=== PATIENT | female | born 1970 | race Caucasian/White ===

== ENCOUNTER 2017-11-21 13:02 | Emergency (ER) | payer OTHER ==
[~2017-11-21] VITALS: Ht 160 cm; Wt 90.7 kg
[~2017-11-21 13:02] MED LIST: Bactrim Ds Tab1 EACH PO; CIPR500 PO; HYDACE5 PO; Lasix20 MG PO; OXYACE5T PO; POTCHL20ER PO; PROM25 PO
[2017-11-21] MEDS ORDERED: ALBU90OI INH (14:40)
[2017-11-21] MEDS ORDERED: Zithromax250 MG PO (14:40)
[2017-11-21] MEDS ORDERED: Prednisone20 MG PO (14:40)
== END 2017-11-21 14:45 | disposition home or self-care (01) ==
LOC: ER 13:02
DX: J18.9 Pneumonia, unspecified organism (principal); F17.210 Nicotine dependence, cigarettes, uncomplicated
CPT/HCPCS: 71046; 94640; 99284

== ENCOUNTER → 2019-01-11 | Outpatient (CLI) | payer SELFPAY ==
[~2019-01-11] MED LIST changes: +ALBU90OI INH; +Prednisone20 MG PO; +Zithromax250 MG PO
== END | disposition home or self-care (01) ==
LOC: LAB SRC 09:19 → LAB SHORT 09:19
DX: R30.0 Dysuria (principal); R35.0 Frequency of micturition
CPT/HCPCS: 87077; 87086; 87186

== ENCOUNTER 2019-08-21 14:51 | Inpatient (IN) | payer OTHER ==
[~2019-08-21] VITALS: Ht 160 cm; Wt 113.1 kg
[2019-08-21 15:48] LABS: Hemoglobin 13.5 g/dL (11.5-16.0); Mean Corpuscular HGB 30.4 pg (26.0-34.0); Mean Corpuscular HGB Conc 31.4 g/dL (31.5-36.5); Mean Corpuscular Volume 97 fL (80-100); Mean Platelet Volume 10.1 fL (9.1-12.4); Platelet Count 234 K/mm3 (150-400); RDW Coefficient Variation 13.6 % (11.7-14.2); RDW Standard Deviation 48.5 fL (35.1-46.3); Red Blood Cell Count 4.44 M/mm3 (3.80-5.20); White Blood Cell Count 9.76 K/mm3 (4.00-11.30)
[2019-08-21 16:04] LABS: International Normalized Ratio 1.16; Prothrombin Time Results 12.1 Sec (9.7-11.5)
[2019-08-21 16:10] LABS: Alanine Aminotransfer (ALT/SGP 44 U/L (12-78); Albumin, Blood 3.3 g/dL (3.4-5.0); Albumin/Globulin Ratio 0.6 (0.8-1.8); Alk Phos 117 U/L (50-136); Anion Gap 8 mmol/L (6-16); Aspartate Aminotrans (AST/SGOT 39 U/L (12-37); Bilirubin, Total 0.8 mg/dL (0.1-1.0); Blood Urea Nitrogen 21 mg/dL (8-24); Bun/Creatinine Ratio 17.9 (12.0-20.0); CO2, Blood 26 mmol/L (21-32); Chloride, Blood 103 mmol/L (98-108); Creatinine, Blood 1.17 mg/dL (0.40-1.00); Globulin, Blood 5.1 g/dL (2.2-4.0); Glomerular Filtration Rate 52 (60-); Glucose, Blood 128 mg/dL (70-99); Sodium, Blood 137 mmol/L (136-145); Total Protein, Blood 8.4 g/dL (6.4-8.2); Troponin I <0.015 ng/mL (0.000-0.040)
[2019-08-21 16:20] LABS: Influenza A Negative (NEGATIVE); Influenza B Negative (NEGATIVE)
[2019-08-21 16:42] LABS: BAND PERCENT MAN 21 % (0-8); BASOPHILS PERCENT MAN 0 % (0-2); EOSINOPHILS PERCENT MAN 0 % (0-6); LYMPHOCYTES ABSOLUTE MAN 0.97 K/mm3 (0.84-5.20); LYMPHOCYTES PERCENT MAN 10 % (21-46); METAMYELOCYTE ABSOLUTE MAN 0.19 K/mm3 (0.00-0.00); METAMYELOCYTE PERCENT MAN 2 % (0-0); MONOCYTES ABSOLUTE MAN 0.19 K/mm3 (0.16-1.47); MONOCYTES PERCENT MAN 2 % (4-13); NEUTROPHILS ABSOLUTE MAN 8.39 K/mm3 (1.96-9.15); SEG NEUTROPHILS PERCENT MAN 65 % (41-73); TOTAL CELLS COUNTED 100
[2019-08-21 17:36] LABS: Source, Urine Catheter
[2019-08-21 17:39] LABS: Blood, Urine 1+ (Neg); Glucose Qualitative, Urine Neg (Neg); Ketones, Urine 1+ (Neg); Leukocyte Esterase, Urine 1+ (Neg); Nitrite, Urine Neg (Neg); Protein, Urine 2+ (Neg); Urobilinogen, Urine 1+ (Normal)
[2019-08-21 17:59] LABS: Appearance, Urine Hazy (Clear); Bilirubin, Urine 1+ (Neg); Color, Urine Amber (P-Yellow)
[2019-08-21 18:01] LABS: Red Blood Cells, Urine 0-2 /hpf (0-2); Squamous Epithelial Cells Many /hpf (Few)
[2019-08-21 18:02] LABS: Bacteria Many /hpf
--- NOTE | 2019-08-21 20:05 | NUR ---
PT ARRIVES TO ICU 6 VIA GURNEY FROM ER, ALERT AND ORIENTED X 3, SPEAKING IN 1-2 WORD SENTENCES, PT STATES THAT BREATHING FEELS A LITTLE IMPROVED FROM ARRIVAL IN ER. SHE DENIES N/V, STATES THAT SHE HAS 7/10 SHARP PAIN TO HER CHEST EXACERBATED BY COUGH. SHE IS NOTED RESTLESS IN BED WITH MARKED INCREASED WORK OF BREATHING, RT CONTACTED FOR UDN, OXYGEN VIA NASAL CANNULA IN PLACE FROM ER, PT STATES THAT SHE CAN'T BREATH THROUGH HER NOSE, NASAL CANNULA PLACED IN PT'S MOUTH, PT ASSISTED TO POSITION OF COMFORT, LUNGS ARE NOTED COARSE THROUGHOUT WITH DIM BASES BILAT, SATS ARE MID 90S, RESP RATE 30-MID 40S AT THIS TIME. HRR, SINUS TACH NOTED ON MONITOR, RATE 130S, SBP 90S HOWEVER MAP IS MAINTAINING NEAR 70, PULSES ARE FULL X 4 EXTREMITIES, SKIN IS PINK AND WARM, SOME DIAPHORESIS NOTED, NO EDEMA NOTED AT THIS TIME, CAP REFILL IS BRISK. ABD DISTENDED, ACTIVE BOWEL TONES X 4, NONTENDER TO PALP. GARCIA CATH IN PLACE DRAINING CLEAR, DARK DEVI URINE TO GRAVITY, WILL MONITOR. RT RECOMMENDATION FOR AIRVO NOTED AND CALL PLACED TO DR SPENCER, ORDERS OBTAINED AND RT NOTIFIED.
--- NOTE | 2019-08-21 22:35 | NUR ---
PT C/O FEELING OF SHORTNESS OF BREATH IS INCREASING, SHE IS NOTED RESTLESS IN BED, RESP RATE IS NEAR 30 WHEN AT REST WITH IMPROVEMENT TO WORK OF BREATHING HOWEVER WITH ACTIVITY, RATE INCREASES TO MID 40S. CALL PLACED TO DR SPENCER AND ORDERS OBTAINED.
[2019-08-21 22:49] LABS: PCO2 Arterial 35.6 mmHg (35-45); PO2 Arterial 67.8 mmHg (80-100); pH Blood Arterial 7.38 (7.35-7.45)
--- NOTE | 2019-08-21 23:00 | NUR ---
PT APPEARS TO BE RESTING QUIETLY RESPIRATIONS EVEN AND REGULAR RATE MID 20S, SATS MAINTAINING MID 90S. LUNG SOUNDS CONTINUE COARSE THROUGHOUT, IMPROVED AIR MOVEMENT IS NOTED BILATERAL BASES.
--- NOTE | 2019-08-21 23:39 | NUR ---
PT AWAKE C/O FEELING SCARED, RESP RATE NOTED 40S, SATS CONTINUE TO MAINTAIN, LUNGS CONTINUE COARSE THROUGHOUT, RT CONTACTED AND AT BEDSIDE FOR AIRVO ADJUSTMENT. WILL MONITOR AND NOTIFY MD IF NO IMPROVEMENT IS NOTED.
--- NOTE | 2019-08-22 | NUR ---
PT CONTINUES WITH INCREASED WORK OF BREATHING AND RATE MID 40S, CALL PLACED TO DR DIETZ AND ORDERS RECEIVED FOR BIPAP, RT AT BEDSIDE AND INITIATING AT THIS TIME. WILL MONITOR.
--- NOTE | 2019-08-22 01:00 | NUR ---
PT TOLERATING BIPAP WELL SINCE INITIATION, SATS MID TO UPPER 90S, RESP RATE DECREASED TO MID 20S TO 30 AND PT APPEARS TO BE SLEEPING.
--- NOTE | 2019-08-22 02:50 | NUR ---
PT LUNGS CONT COARSE THROUGHOUT, INCREASED RESP RATE AND EFFORT CONTINUE ON BIPAP, IVF TO TKO AND CALL PLACED TO DR DIETZ, DISCUSSED CONCERNS RELATED POSS FLUID OVERLOAD, ORDERS RECEIVED FOR BNP WITH AM LABS AND DC NS AT 200 ML/HR.
[2019-08-22 03:15] LABS: Hematocrit 35.4 % (33.0-51.0); Mean Corpuscular HGB 29.9 pg (26.0-34.0); Mean Corpuscular HGB Conc 31.1 g/dL (31.5-36.5); Mean Corpuscular Volume 96 fL (80-100); Mean Platelet Volume 10.1 fL (9.1-12.4); Platelet Count 179 K/mm3 (150-400); RDW Coefficient Variation 13.9 % (11.7-14.2); RDW Standard Deviation 49.1 fL (35.1-46.3); Red Blood Cell Count 3.68 M/mm3 (3.80-5.20); White Blood Cell Count 13.28 K/mm3 (4.00-11.30)
[2019-08-22 03:31] LABS: Alanine Aminotransfer (ALT/SGP 35 U/L (12-78); Albumin, Blood 2.5 g/dL (3.4-5.0); Albumin/Globulin Ratio 0.6 (0.8-1.8); Alk Phos 79 U/L (50-136); Anion Gap 7 mmol/L (6-16); Aspartate Aminotrans (AST/SGOT 36 U/L (12-37); Bilirubin, Total 0.4 mg/dL (0.1-1.0); Blood Urea Nitrogen 22 mg/dL (8-24); Bun/Creatinine Ratio 23.3 (12.0-20.0); CO2, Blood 22 mmol/L (21-32); Calcium, Blood 7.4 mg/dL (8.5-10.1); Chloride, Blood 111 mmol/L (98-108); Creatinine, Blood 0.95 mg/dL (0.40-1.00); Globulin, Blood 4.1 g/dL (2.2-4.0); Glomerular Filtration Rate >60 (60-); Glucose, Blood 83 mg/dL (70-99); Potassium, Blood 4.1 mmol/L (3.5-5.5); Sodium, Blood 140 mmol/L (136-145); Total Protein, Blood 6.6 g/dL (6.4-8.2)
[2019-08-22 04:31] LABS: BAND PERCENT MAN 30 % (0-8); BASOPHILS PERCENT MAN 0 % (0-2); EOSINOPHILS PERCENT MAN 0 % (0-6); LYMPHOCYTES ABSOLUTE MAN 1.72 K/mm3 (0.84-5.20); LYMPHOCYTES PERCENT MAN 13 % (21-46); METAMYELOCYTE ABSOLUTE MAN 0.39 K/mm3 (0.00-0.00); METAMYELOCYTE PERCENT MAN 3 % (0-0); MONOCYTES ABSOLUTE MAN 0.13 K/mm3 (0.16-1.47); MONOCYTES PERCENT MAN 1 % (4-13); MYELOCYTE ABSOLUTE MAN 0.13 K/mm3 (0.00-0.00); MYELOCYTE PERCENT MAN 1 % (0-0); NEUTROPHILS ABSOLUTE MAN 10.88 K/mm3 (1.96-9.15); SEG NEUTROPHILS PERCENT MAN 52 % (41-73); TOTAL CELLS COUNTED 100
--- NOTE | 2019-08-22 06:36 | NUR ---
PT FREQUENTLY AWAKE AND RESTLESS THIS SHIFT RELATED TO DYSPNEA. ARRIVED FROM ER WITH OXYGEN VIA NASAL CANNULA AND RESP RATES 30-40S, LUNGS COARSE THROUGHOUT, OXYGEN WAS INCREASED TO AIRVO AND PT CONTINUED IN WITH INCREASED WORK OF BREATHING, BIPAP WAS STARTED AT MIDNOC ASSESSMENT FOR PT CONTINUED DYSPNEA AND RESP RATES 30-40S WITH ACTIVITY AND INCREASED RESTLESSNESS, PT WAS ABLE TO RELAX AND APPEARED TO SLEEP FOR BRIEF DURATIONS, RATES IMPROVED INITIALLY TO MID 20S AND SATS TO HIGH 90S, COARSE LUNG SOUNDS CONTINUED THROUGHOUT OF 244 THIS AM AND FLUIDS WERE DC'D, BNP ASSESSED AND PT WAS MADE NPO. LUNG SOUNDS HAVE IMPROVED THIS AM, THEY REMAIN COARSE THROUGHOUT HOWEVER IMPROVED AIR MOVEMENT IS NOTED, BIPAP SETTINGS ARE 14/7, FIO2 30% PT'S SATS CONTINUE TO MAINTAIN. PT WAS MADE ICU STATUS IN ER FOR CONCERN OF HYPOTENSION WITH DIAGNOSIS OF SEPSIS, PRESSURE HAS MAINTAINED THROUGHOUT SHIFT, PULSES REMAIN FULL X 4 EXTREMITIES, SKIN REMAINS PWD WITH BRISK CAP REFILL, TRACE NON-PITTING EDEMA IS NOTED TO EXTREMITIES.
--- NOTE | 2019-08-22 09:46 | NUR ---
CARE ASSUMED ASSESSMENT COMPLETED, PT RESTING IN BED WITH EYES CLOSED, ORIENTED X4, ANXIOUS AT TIMES. HR 120'S SIT, LS RHONCHI T/O, BIPAP 14/7, 30% FIO2, SPO2 >90%, RR 30'S. ORAL CARE COMPLETED, PT SOB AT REST, CAN ONLY TOLERATE BIPAP MASK TO BE OFF FOR BRIEF MOMENTS TO PROVIDE CARES, SPEAKS 3-4 WORDS AT A TIME. ABX ADMINISTERED PER ORDERS. DR. MOURA AT BEDSIDE, NEW ORDERS, LASIX ADMINISTERED, WILL MONITOR BP'S CLOSELY.
--- NOTE | 2019-08-22 12:55 | NUR ---
PT RESTING IN BED, REMAINS MILDLY ANXIOUS. LS IMPROVING, CLEAR ON LEFT, COARSE IN RIGHT UPPER AND MID LOBES WITH A FINE EXPIRATORY WHEEZE IN THE RIGHT LOWER LOBE. LOOSE COUGH PRESENT. BIPAP 14/7 25% FIO2, SPO2 95%, RR 28-30. BP STABLE, GOOD URINE OUTPUT. PT RESTING WITH EYES CLOSED, INTERMITTENTLY SWABBING MOUTH WITH WATER.
--- NOTE | 2019-08-22 16:37 | NUR ---
patient gave me permission to help with her care.
--- NOTE | 2019-08-22 19:14 | NUR ---
PT HAD GOOD URINE OUTPUT TODAY AFTER LASIX, LS CLEARED ON LEFT SIDE, REMAIN COARSE ON RIGHT, NO CRACKLES OR WHEEZES NOTED. PT COUGHING, FAYE SPUTUM PRODUCTION REMAINS. BIPAP 14/7, FIO2 25%, RR 28, PT TOLERATING BIPAP WELL. DR. GARRIDO IN THIS EVENING TO REASSESS, SECOND DOSE OF LASIX ADMINISTERED. HR 100-120 SIT, BP STABLE AT THIS TIME. BEDBATH GIVEN, PT TOLERATED WELL, PT MORE ALERT AND TALKATIVE THIS EVENING, WORK OF BREATHING DECREASED FROM THIS MORNINGS ASSESSMENT. NO PERIPHERAL EDEMA NOTED. 1600 REASSESSMENT COMPLETED BY THIS RN WELL STUDENT, THIS RN AGREES WITH STUDENT'S CHARTED ASSESSENTS. REPORT TO ONCOMING SHIFT.
--- NOTE | 2019-08-22 19:15 | NUR ---
ASSUMED CARE OF PT, REPORT RECEIVED. PT APPEARS TO BE SLEEPING AT THIS TIME, BIPAP IN PLACE 08/05, FIO2 25%, SATS MID 90S, RATE 22-25 AT THIS TIME, TIDAL VOLUMES NEAR 600. HRR, SINUS TACH ON MONITOR, RATE BETWEEN 100 AND 110, PRESSURE MAINTAINING. SIG OTHER AT BEDSIDE, WILL CALL WHEN PT AWAKENS OTHERWISE PLAN TO ATTEMPT NASAL CANNULA AFTER 1999 AND ALLOW PT TO HAVE PO INTAKE IF NO MARKED INCREASED WORK OF BREATHING OFF BIPAP.
--- NOTE | 2019-08-22 21:15 | NUR ---
PT FROM BIPAP TO NASAL CANNULA AT 4L/MIN SATS 100% AND MAINTAINING, DECREASED TO 2 L/MIN, SATS MID 90S, RESP RATE LOW 20S AT THIS TIME, WILL MONITOR X 30 MINUTES. PT DENIES PAIN, STATES THAT HER BREATHING IS FEELING BETTER, SPEAKING IN FULL SENTENCES AT THIS TIME, WILL MONITOR.
--- NOTE | 2019-08-22 22:00 | NUR ---
PT TOLERATING NASAL CANNULA WELL WITHOUT INCREASED WORK OF BREATHING AND SATS ARE MAINTAINING, RESP RATE CONTINUES LOW 20S. PROVIDED WITH JELLO, PUDDING, AND ICEWATER AT THIS TIME. WILL MONITOR.
--- NOTE | 2019-08-22 22:30 | NUR ---
PT TOLERATING PO INTAKE WELL. WILL CONT TO MONITOR.
[2019-08-23 03:14] LABS: BASOPHILS ABSOLUTE AUTO 0.05 K/mm3 (0.00-0.23); BASOPHILS PERCENT AUTO 0 % (0-2); EOSINOPHILS ABSOLUTE AUTO 0.03 K/mm3 (0.00-0.68); EOSINOPHILS PERCENT AUTO 0 % (0-6); Hemoglobin 10.7 g/dL (11.5-16.0); IMMATURE GRAN ABSOLUTE AUTO 0.05 K/mm3 (0.00-0.10); IMMATURE GRAN PERCENT AUTO 0 % (0-1); LYMPHOCYTES ABSOLUTE AUTO 1.52 K/mm3 (0.84-5.20); LYMPHOCYTES PERCENT AUTO 10 % (21-46); MONOCYTES ABSOLUTE AUTO 0.49 K/mm3 (0.16-1.47); MONOCYTES PERCENT AUTO 3 % (4-13); Mean Corpuscular HGB 30.4 pg (26.0-34.0); Mean Corpuscular HGB Conc 30.6 g/dL (31.5-36.5); Mean Corpuscular Volume 99 fL (80-100); Mean Platelet Volume 10.1 fL (9.1-12.4); NEUTROPHILS ABSOLUTE AUTO 13.06 K/mm3 (1.96-9.15); NEUTROPHILS PERCENT AUTO 86 % (41-73); Platelet Count 183 K/mm3 (150-400); RDW Coefficient Variation 14.3 % (11.7-14.2); RDW Standard Deviation 52.2 fL (35.1-46.3); Red Blood Cell Count 3.52 M/mm3 (3.80-5.20)
[2019-08-23 03:25] LABS: Base Excess Venous 0.4 mmol/L; Bicarbonate Venous 24.2 mmol/L (24.0-30.0); PCO2 Venous 43.7 mmHg (38-42); PO2 Venous 43.4 mmHg (38-42); pH Blood Venous 7.38 (7.34-7.37)
[2019-08-23 03:28] LABS: Anion Gap 4 mmol/L (6-16); Blood Urea Nitrogen 20 mg/dL (8-24); Bun/Creatinine Ratio 28.7 (12.0-20.0); CO2, Blood 26 mmol/L (21-32); Calcium, Blood 7.9 mg/dL (8.5-10.1); Chloride, Blood 110 mmol/L (98-108); Glomerular Filtration Rate >60 (60-); Glucose, Blood 89 mg/dL (70-99); Potassium, Blood 3.8 mmol/L (3.5-5.5); Sodium, Blood 140 mmol/L (136-145)
[2019-08-23 03:31] LABS: BAND PERCENT MAN 13 % (0-8); BASOPHILS PERCENT MAN 0 % (0-2); EOSINOPHILS PERCENT MAN 0 % (0-6); LYMPHOCYTES ABSOLUTE MAN 1.52 K/mm3 (0.84-5.20); LYMPHOCYTES PERCENT MAN 10 % (21-46); MONOCYTES ABSOLUTE MAN 0.76 K/mm3 (0.16-1.47); MONOCYTES PERCENT MAN 5 % (4-13); NEUTROPHILS ABSOLUTE MAN 12.92 K/mm3 (1.96-9.15); SEG NEUTROPHILS PERCENT MAN 72 % (41-73); TOTAL CELLS COUNTED 100
--- NOTE | 2019-08-23 04:36 | NUR ---
PT REQUESTS BIPAP SECONDARY TO INCREASED WORK OF BREATHING, BIPAP RESUMED, 08/05, FIO2 30% WILL MONITOR.
--- NOTE | 2019-08-23 06:32 | NUR ---
PT OFF BIPAP FROM 2114 UNTIL 435 THIS AM AND TOLERATED WELL. TOLERATED PO INTAKE WELL. SATS ARE MAINTAINED WITH OXYGEN VIA NASAL CANNULA AT 2 L/MIN THROUGHOUT NOC, PT REQUESTED TO BE PLACED BACK ON BIPAP TX FOR FEELING OF INCREASED WORK OF BREATHING THIS AM. LUNG SOUNDS REMAIN COARSE TO RIGHT UPPER LOBE, DIMIN ON LEFT. SHE IS NOTED TO HAVE INCREASED ACTIVITY TOLERANCE. IMPROVED URINE OUTPUT IS NOTED. PRESSURE HAS MAINTAINED WITHOUT USE OF LEVOPHED.
--- NOTE | 2019-08-23 07:55 | NUR ---
ASSUMED CARE / DR GUTIERREZ: REPORT RECEIVED FROM LEILA Post RN. ASSUMED CARE OF THIS PT AT APPROX 0700. ON ASSESSMENT, THE PT IS REQUESTING TO HAVE BIPAP REMOVED & STS SHE IS GETTING A HOGUE FROM THE MASK. BIPAP 14/7 & 25%, BACK-UP RATE 14. PT PLACED ON 2L NC W/ O2 SATS > 92%. LS ARE COARSE T/O, PT COUGHING/ EXPECTORATING WELL. MONITOR SHOWS SR W/ HR 80-90s. BP STABLE. GARCIA PATENT/ DRAINING, PT HAS NO GI COMPLAINTS. PROVIDER AT BEDSIDE TO SEE PT. TRANSFER DISCUSSED, PT OKAY TO BE PCU STATUS NOW. DR GUTIERREZ WOULD LIKE THE PT TO BE MOBILIZED TODAY & GET OOB IF POSSIBLE, THE PT IS AGREEABLE TO THIS. WILL CONTINUE TO MONITOR & UPDATE NEEDED.
--- NOTE | 2019-08-23 18:15 | NUR ---
SHIFT SUMMARY: NO ACUTE CHANGES SINCE INITIAL ASSESSMENT. PT A&O, PLEASANT & COOPERATIVE. SHE HAS BEEN VERY MOBILE THIS AFTERNOON, REQUIRING ONLY SBA FOR CORD/LINE CONTROL DURING TX OOB. LS REMAIN COARSE, PT GRACE 2L NC W/ O2 SATS > 92%. MONITOR SHOWS SR W/ HR 80s, BP STABLE. PT HAS GOOD APPETITE & NO C/O NAUSEA. HAVING LIQUID BROWN STLS, SPECIMEN SENT TO LAB IS NEG FOR C-DIFF. GARCIA PATENT/ DRAINING CLOUDY YELLOW URINE. SKIN OVERALL CDI. TRANSFER BED ASSIGNED IS PCU-14, AWAITING CALLBACK FROM RN TO ASSUME CARE FOR REPORT ON THIS PT. WILL CONTINUE TO MONITOR & REPORT OFF TO RN TO ASSUME CARE IN PCU.
--- NOTE | 2019-08-23 19:41 | NUR ---
CARE ASSUMPTION PT A&O X4. VSS. MONITOR SHOWS NSR, HR 90'S. LUNG SOUNDS COARSE. SPO2 98% W/ 2L NC UPON RETURN TO BED POST AMBULATION TO BATHROOM. PT REPORTS RA @ BASELINE. O2 TITRATED TO 1L NC W/ PT REPORT OF LIKELY NEEDING O2 DURING NIGHT WHILE SLEEPING. PT'S BOYFRIEND AT PT'S BEDSIDE W/ PLANS TO STAY W/ PT OVERNIGHT. WILL CONTINUE TO MONITOR AND PROVIDE CARE.
[2019-08-23 21:39] LABS: Vancomycin, Trough 9.1 ug/mL (5.0-10.0)
[2019-08-24 04:30] LABS: BASOPHILS ABSOLUTE AUTO 0.04 K/mm3 (0.00-0.23); BASOPHILS PERCENT AUTO 0 % (0-2); Hematocrit 31.7 % (33.0-51.0); Hemoglobin 9.9 g/dL (11.5-16.0); LYMPHOCYTES ABSOLUTE AUTO 1.84 K/mm3 (0.84-5.20); LYMPHOCYTES PERCENT AUTO 16 % (21-46); MONOCYTES ABSOLUTE AUTO 0.46 K/mm3 (0.16-1.47); MONOCYTES PERCENT AUTO 4 % (4-13); Mean Corpuscular HGB 30.3 pg (26.0-34.0); Mean Corpuscular HGB Conc 31.2 g/dL (31.5-36.5); Mean Corpuscular Volume 97 fL (80-100); Mean Platelet Volume 10.6 fL (9.1-12.4); Platelet Count 203 K/mm3 (150-400); RDW Coefficient Variation 13.8 % (11.7-14.2); RDW Standard Deviation 49.3 fL (35.1-46.3); Red Blood Cell Count 3.27 M/mm3 (3.80-5.20); White Blood Cell Count 11.27 K/mm3 (4.00-11.30)
[2019-08-24 04:31] LABS: EOSINOPHILS ABSOLUTE AUTO 0.06 K/mm3 (0.00-0.68); EOSINOPHILS PERCENT AUTO 1 % (0-6); IMMATURE GRAN ABSOLUTE AUTO 0.07 K/mm3 (0.00-0.10); IMMATURE GRAN PERCENT AUTO 1 % (0-1); NEUTROPHILS PERCENT AUTO 78 % (41-73)
[2019-08-24 04:50] LABS: Albumin, Blood 2.2 g/dL (3.4-5.0); Anion Gap 6 mmol/L (6-16); Blood Urea Nitrogen 11 mg/dL (8-24); Bun/Creatinine Ratio 19.9 (12.0-20.0); CO2, Blood 27 mmol/L (21-32); Calcium, Blood 8.1 mg/dL (8.5-10.1); Chloride, Blood 108 mmol/L (98-108); Creatinine, Blood 0.55 mg/dL (0.40-1.00); Glomerular Filtration Rate >60 (60-); Glucose, Blood 111 mg/dL (70-99); Magnesium, Blood 1.5 mg/dL (1.6-2.4); Phosphorus, Blood 2.2 mg/dL (2.5-4.9); Potassium, Blood 3.8 mmol/L (3.5-5.5); Sodium, Blood 141 mmol/L (136-145)
--- NOTE | 2019-08-24 05:45 | NUR ---
SHIFT SUMMARY PT CONTINUES TO BE A&O X4, VSS. SPO2 > 92% ON RA W/ PT REQUEST FOR O2 WHILE SLEEPING, WEARING 1-2L NC. PT AMBULATING TO BATHROOM ACCOMPANIED BY PT'S BOYFRIEND ASSISTING W/ IV LINE MANAGEMENT. PT TOLERATING AMBULATING WELL. MONITOR SHOWS NSR, HR 80-100. PT REPORTS 1 LOOSE BROWN BM THIS SHIFT. PT BEGAN PROBIOTIC THIS SHIFT PER EMAR. WILL CONTINUE TO MONITOR AND PROVIDE CARE UNTIL REPORT OFF TO DAY SHIFT RN.
--- NOTE | 2019-08-24 09:06 | NUR ---
NURSING PCU DAYSHIFT: Assumed care of pt at approx 0700. A/O, mildly anxious, cooperative w/care. C/O 4/10 neck/shoulder/back pain r/t positioning, treating w/cool cloths per pt request. Skin is intact w/no breakdown noted. Ambulates w/assist required only for line management, mild general weakness noted. Tele in place, NSR, no c/o CP/pressure, SBP 140's, trace BLE edema. L/S w/crackles in R mid/upper lobes, scattered exp wheezes, dyspnea w/exertion, O2 sat low 90's on RA, periods of apnea while sleeping, RN VASCULAR cough. Abd SNT, BT+, FC present upon initial assessment, clear/yellow urine. PIV x1, NS TKO w/abx as scheduled. No s/s of acute distress at this time. FC dc'd by PCT, pt voiding w/o difficulty, urine specimen sent as per d/o. Abx infusing as scheduled, mag rider administered as ordered. Pt and s/o deny any current needs or questions regarding plan of care. Call light in reach and pt is able to use w/o difficulty. Awaiting rounding from PMD and interventional radiologist. Cont to monitor for any changes.
[2019-08-24 14:21] LABS: Vancomycin, Trough 15.4 ug/mL (5.0-10.0)
--- NOTE | 2019-08-24 15:39 | NUR ---
NURSING PCU DAYSHIFT TRANSFER: Seen by PMD and annealing torch operator, new d/o received. Pt changed to medical status w/o tele. Bed assignment received, awaiting report to accepting RN. Worked w/therapy, tolerated well. Pt denies any current needs, cont to monitor until xfer is completed.
--- NOTE | 2019-08-24 17:08 | NUR ---
PT TRANSFERRED TO ROOM 301 VIA W/C. ABLE TO TRANSFER SELF TO BED. AT BEDSIDE. SETTLED IN AND ORIENTED TO ROOM. REQUESTING DOOR CLOSED DUE TO BEING COLD. HEAT STARTED.
--- NOTE | 2019-08-24 17:45 | NUR ---
SHIFT SUMMARY PT HAS HAD NO NEW EVENTS SINCE ARRIVAL TO FLOOR.
--- NOTE | 2019-08-25 02:23 | NUR ---
PT was transferred from PCU to medical floor and continues on Vanco per pharmacy and rocephin for Sepsis. 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 PT denies hx of prior MRSA infection. On room air HOB up. On probiotics with helpful effect had some loose stools but none recently. Appetite and fluid intake good, drank ensure shake and SO has food in room.
[2019-08-25 05:12] LABS: BASOPHILS ABSOLUTE AUTO 0.02 K/mm3 (0.00-0.23); BASOPHILS PERCENT AUTO 0 % (0-2); EOSINOPHILS PERCENT AUTO 2 % (0-6); Hemoglobin 10.3 g/dL (11.5-16.0); IMMATURE GRAN ABSOLUTE AUTO 0.06 K/mm3 (0.00-0.10); IMMATURE GRAN PERCENT AUTO 1 % (0-1); LYMPHOCYTES ABSOLUTE AUTO 1.73 K/mm3 (0.84-5.20); LYMPHOCYTES PERCENT AUTO 28 % (21-46); MONOCYTES ABSOLUTE AUTO 0.51 K/mm3 (0.16-1.47); MONOCYTES PERCENT AUTO 8 % (4-13); Mean Corpuscular HGB 29.9 pg (26.0-34.0); Mean Corpuscular HGB Conc 30.3 g/dL (31.5-36.5); Mean Corpuscular Volume 99 fL (80-100); Mean Platelet Volume 10.8 fL (9.1-12.4); NEUTROPHILS ABSOLUTE AUTO 3.69 K/mm3 (1.96-9.15); NEUTROPHILS PERCENT AUTO 61 % (41-73); Platelet Count 247 K/mm3 (150-400); RDW Coefficient Variation 13.8 % (11.7-14.2); RDW Standard Deviation 50.5 fL (35.1-46.3); Red Blood Cell Count 3.45 M/mm3 (3.80-5.20); White Blood Cell Count 6.11 K/mm3 (4.00-11.30)
[2019-08-25 05:34] LABS: Albumin, Blood 2.3 g/dL (3.4-5.0); Anion Gap 6 mmol/L (6-16); Blood Urea Nitrogen 10 mg/dL (8-24); Bun/Creatinine Ratio 18.2 (12.0-20.0); CO2, Blood 28 mmol/L (21-32); Calcium, Blood 8.4 mg/dL (8.5-10.1); Chloride, Blood 108 mmol/L (98-108); Creatinine, Blood 0.55 mg/dL (0.40-1.00); Glomerular Filtration Rate >60 (60-); Glucose, Blood 74 mg/dL (70-99); Magnesium, Blood 1.7 mg/dL (1.6-2.4); Phosphorus, Blood 3.8 mg/dL (2.5-4.9); Potassium, Blood 3.7 mmol/L (3.5-5.5); Sodium, Blood 142 mmol/L (136-145)
--- NOTE | 2019-08-25 14:08 | NUR ---
PT HAS BEEN SLEEPING ON AND OFF THROUGH DAY. AT BEDSIDE. KPAD PLACE ON NECK AND BACK OF HEAD AND SHE REPORTED THAT HELPED PAIN A LOT WITH TYLENOL AND KPAD BRINGING PAIN FROM 5 TO 2. STATES SHE THINKS SHE IS READY TO GO HOME. NOTIFIED MD. REPORT GIVEN TO AMBER EDWARDS
[2019-08-25] MEDS ORDERED: ACET325 PO (16:16)
[2019-08-25] MEDS ORDERED: ALBU2.5V5 INH (16:16)
[2019-08-25] MEDS ORDERED: Culturelle1 CAP PO (16:18)
[2019-08-25] MEDS ORDERED: MUCUS ER600 MG PO (16:18)
[2019-08-25] MEDS ORDERED: Sulfamethoxazo1 EAC4 PO (16:19)
[2019-08-25] MEDS ORDERED: LEVO750 PO (16:19)
--- NOTE | 2019-08-25 17:32 | NUR ---
PATIENT DISCHARGED AT 17:30. THE PATIENTS WHEELED HER TO THE VEHICLE IN A WHEELCHAIR. HER TWO IV'S DC'D.
== END 2019-08-25 17:30 | disposition home or self-care (01) | DRG 871 ==
LOC: ER 14:51 → ICUE 17:18 → ICUW 17:18 → ER 20:00 → ICUE 20:05 → PCU 08-23 19:05 → MEDS 08-24 16:33 → ENPENDDIS 08-25 16:00 → MEDS 08-25 17:30
PROVIDERS: Internal Medicine; Internal Medicine Critical Care Medicine; Physician Assistant; ADMIT Internal Medicine
PROC: 5A09357 Assistance with Respiratory Ventilation, Less than 24 Consecutive Hours, Continuous Positive Airway Pressure (ICD-10-PCS; principal; 2019-08-22)
DX: A41.9 Sepsis, unspecified organism (principal); J96.02 Acute respiratory failure with hypercapnia; J18.9 Pneumonia, unspecified organism; J96.01 Acute respiratory failure with hypoxia; N17.9 Acute kidney failure, unspecified; F17.210 Nicotine dependence, cigarettes, uncomplicated; E83.42 Hypomagnesemia; E83.39 Other disorders of phosphorus metabolism; Z22.322 Carrier or suspected carrier of Methicillin resistant Staphylococcus aureus; R65.20 Severe sepsis without septic shock; D64.9 Anemia, unspecified
CPT/HCPCS: 36415; 36600; 51702; 71045; 71046; 80048; 80053; 80069; 80202; 81001; 82803; 83605; 83735; 83880; 84145; 84484; 85025; 85610; 85730; 87040; 87070; 87086; 87205; 87449; 87493; 87804; 93005; 93010; 94640; 94660; 94760; 94761; 96361-59; 96365-59; 96367-59; 97110; 97161; 97530; 99285-25; A9270; J0456; J0696; J1644; J1940; J2060; J3370; J3475; J7030; J7050; J7060

== ENCOUNTER → 2020-09-18 | Outpatient (CLI) | payer OTHER ==
[~2020-09-18] MED LIST changes: +ACET325 PO; +ALBU2.5V5 INH; +Culturelle1 CAP PO; +LEVO750 PO; +LORA.5 PO; +MUCUS ER600 MG PO; +Sulfamethoxazo1 EAC4 PO
== END | disposition home or self-care (01) ==
LOC: LAB 21:57 → LAB SHORT 21:57
DX: R31.9 Hematuria, unspecified (principal)
CPT/HCPCS: 87086

== ENCOUNTER 2021-03-07 15:38 | Inpatient (IN) | payer OTHER ==
[~2021-03-07] VITALS: Ht 157.5 cm; Wt 124.0 kg
[2021-03-07 16:27] LABS: BASOPHILS ABSOLUTE AUTO 0.01 K/mm3 (0.00-0.23); BASOPHILS PERCENT AUTO 0 % (0-2); EOSINOPHILS ABSOLUTE AUTO 0.04 K/mm3 (0.00-0.68); EOSINOPHILS PERCENT AUTO 1 % (0-6); Hemoglobin 12.4 g/dL (11.5-16.0); IMMATURE GRAN ABSOLUTE AUTO 0.01 K/mm3 (0.00-0.10); IMMATURE GRAN PERCENT AUTO 0 % (0-1); LYMPHOCYTES ABSOLUTE AUTO 1.16 K/mm3 (0.84-5.20); LYMPHOCYTES PERCENT AUTO 29 % (21-46); MONOCYTES ABSOLUTE AUTO 0.23 K/mm3 (0.16-1.47); MONOCYTES PERCENT AUTO 6 % (4-13); Mean Corpuscular HGB 28.9 pg (26.0-34.0); Mean Corpuscular HGB Conc 30.2 g/dL (31.5-36.5); Mean Corpuscular Volume 96 fL (80-100); NEUTROPHILS PERCENT AUTO 63 % (41-73); Platelet Count 158 K/mm3 (150-400); RDW Coefficient Variation 16.1 % (11.7-14.2); RDW Standard Deviation 56.8 fL (35.1-46.3); Red Blood Cell Count 4.29 M/mm3 (3.80-5.20); White Blood Cell Count 3.95 K/mm3 (4.00-11.30)
[2021-03-07 16:46] LABS: Alanine Aminotransfer (ALT/SGP 33 U/L (12-78); Albumin/Globulin Ratio 0.8 (0.8-1.8); Alk Phos 106 U/L (50-136); Anion Gap 2 mmol/L (6-16); Aspartate Aminotrans (AST/SGOT 37 U/L (12-37); Bilirubin, Total 0.7 mg/dL (0.1-1.0); Blood Urea Nitrogen 9 mg/dL (8-24); CO2, Blood 31 mmol/L (21-32); Calcium, Blood 8.5 mg/dL (8.5-10.1); Chloride, Blood 109 mmol/L (98-108); Creatinine, Blood 0.82 mg/dL (0.40-1.00); Glomerular Filtration Rate >60 (60-); Glucose, Blood 118 mg/dL (70-99); Potassium, Blood 3.9 mmol/L (3.5-5.5); Sodium, Blood 142 mmol/L (136-145); Troponin I 0.034 ng/mL (0.000-0.040)
[2021-03-07] MEDS ORDERED: LORA.5 PO (20:13)
[2021-03-07] MEDS ORDERED: ZYRTEC10 M2 PO (23:51)
[2021-03-08 00:22] LABS: Source, Urine Catheter
[2021-03-08 00:30] LABS: Bilirubin, Urine Neg (Neg); Blood, Urine 2+ (Neg); Glucose Qualitative, Urine Neg (Neg); Ketones, Urine Neg (Neg); Leukocyte Esterase, Urine 1+ (Neg); Nitrite, Urine Neg (Neg); Protein, Urine 1+ (Neg); Urobilinogen, Urine NORM (Normal); pH, Urine 6.5 (5.0-8.0)
[2021-03-08 00:32] LABS: Appearance, Urine Clear (Clear); Color, Urine Yellow (P-Yellow)
[2021-03-08 00:42] LABS: Squamous Epithelial Cells Few /hpf (Few)
[2021-03-08 00:43] LABS: Bacteria Few /hpf
[2021-03-08 05:03] LABS: BASOPHILS ABSOLUTE AUTO 0.01 K/mm3 (0.00-0.23); BASOPHILS PERCENT AUTO 0 % (0-2); EOSINOPHILS ABSOLUTE AUTO 0.07 K/mm3 (0.00-0.68); EOSINOPHILS PERCENT AUTO 2 % (0-6); Hematocrit 41.1 % (33.0-51.0); Hemoglobin 12.4 g/dL (11.5-16.0); IMMATURE GRAN ABSOLUTE AUTO 0.01 K/mm3 (0.00-0.10); IMMATURE GRAN PERCENT AUTO 0 % (0-1); LYMPHOCYTES ABSOLUTE AUTO 1.07 K/mm3 (0.84-5.20); LYMPHOCYTES PERCENT AUTO 23 % (21-46); MONOCYTES ABSOLUTE AUTO 0.32 K/mm3 (0.16-1.47); MONOCYTES PERCENT AUTO 7 % (4-13); Mean Corpuscular HGB 29.2 pg (26.0-34.0); Mean Corpuscular HGB Conc 30.2 g/dL (31.5-36.5); Mean Corpuscular Volume 97 fL (80-100); Mean Platelet Volume 11.3 fL (9.1-12.4); NEUTROPHILS ABSOLUTE AUTO 3.22 K/mm3 (1.96-9.15); NEUTROPHILS PERCENT AUTO 69 % (41-73); Platelet Count 176 K/mm3 (150-400); RDW Coefficient Variation 16.1 % (11.7-14.2); RDW Standard Deviation 57.1 fL (35.1-46.3); Red Blood Cell Count 4.25 M/mm3 (3.80-5.20)
--- NOTE | 2021-03-08 05:21 | NUR ---
SHIFT SUMMARY PT ER ADMIT THIS WITH A NEW DX OF CHF. SHE HAS BEEN DIURESED WITH 80 MG OF LASIK IN THE ER AND HAS BEEN VOIDING ADEQUETLY SINCE THAT TIME. WHEN PT ARRIVED TO THE UNIT SHE REPORTS FEELING A LOT BETTER AND DENIES SOB. SHE HAS BEEN ABLE TO AMBULATE TO THE BS TO VOID WITHOUT DIFFICULTY, VERY MILD SOB OBSERVED WITH AMBULATION. PT IS ON RA AT THIS TIME, SATS WNL. SHE REFUSES CPAP. NO COUGH. PLAN IS TO CONTINUE DIURESIS. VITALS STABLE. PT A/OX4, COOPERATIVE WITH CARE. ADMISSION COMPLETE. BED IN LOWEST POSITION, CALL LIGHT WITHIN REACH.
[2021-03-08 05:32] LABS: Alanine Aminotransfer (ALT/SGP 30 U/L (12-78); Albumin/Globulin Ratio 0.8 (0.8-1.8); Alk Phos 91 U/L (50-136); Anion Gap 4 mmol/L (6-16); Aspartate Aminotrans (AST/SGOT 38 U/L (12-37); Blood Urea Nitrogen 8 mg/dL (8-24); Bun/Creatinine Ratio 10.3 (12.0-20.0); CO2, Blood 34 mmol/L (21-32); CPK Creatine Kinase 77 U/L (26-193); Calcium, Blood 8.3 mg/dL (8.5-10.1); Chloride, Blood 103 mmol/L (98-108); Creatinine, Blood 0.77 mg/dL (0.40-1.00); Globulin, Blood 3.9 g/dL (2.2-4.0); Glomerular Filtration Rate >60 (60-); Glucose, Blood 99 mg/dL (70-99); Potassium, Blood 3.5 mmol/L (3.5-5.5); Sodium, Blood 141 mmol/L (136-145); Total Protein, Blood 6.9 g/dL (6.4-8.2); Troponin I 0.025 ng/mL (0.000-0.040)
--- NOTE | 2021-03-08 12:12 | NUR ---
Patient is sitting up in bed and alert. Patient tells me about the events that led to her hospitalization, about her current symptoms and about the plan of care moving forward. She talks about her family unit complications, her yazdanism family ([facility]) and about her spiritual journey. I reinforce helpful attitudes and practices and provide therapeutic listening and prayer. Patient responds well and shows signs of an elevated mood. I will continue to remain available to patient and family.
--- NOTE | 2021-03-08 16:49 | NUR ---
PT AAOX4. SHE SPENT MAJORITY OF SHIFT RESTING EYES CLOSED. EASILY ROUSED BY VOICE. INDEPENDENT TO BSC. NO SOB, VIVAR IS RELIEVED BY REST. PT WITH GENERALIZED EDEMA, IMPROVING WITH IV DIURESIS. NONPRODUCTIVE COUGH NOTED. MEDICATED X1 WITH TYLENOL FOR HEADACHE WITH GOOD RESULTS. NO ANXIETY NOTED. IV PATENT AND SALINE LOCKED. INITIATED BASIC CHF EDUCATION. WILL NEED REINFORCED. WILL CONTINUE TO MONITOR UNTIL REPORT TO NOC RN
[2021-03-09 04:57] LABS: Hematocrit 41.5 % (33.0-51.0); Hemoglobin 12.5 g/dL (11.5-16.0); Mean Corpuscular HGB 29.3 pg (26.0-34.0); Mean Corpuscular HGB Conc 30.1 g/dL (31.5-36.5); Mean Corpuscular Volume 97 fL (80-100); Mean Platelet Volume 11.7 fL (9.1-12.4); Platelet Count 186 K/mm3 (150-400); RDW Coefficient Variation 16.1 % (11.7-14.2); RDW Standard Deviation 57.5 fL (35.1-46.3); Red Blood Cell Count 4.27 M/mm3 (3.80-5.20); White Blood Cell Count 4.44 K/mm3 (4.00-11.30)
--- NOTE | 2021-03-09 05:35 | NUR ---
SHIFT SUMMARY A/O, ABLE TO MAKE NEEDS KNOWN. COOPERATIVE WITH CARE. CALLS AND ANSWERS QUESTIONS APPROPRIATELY. NO C/O PAIN/DISCOMFORT. DID NOT APPEAR TO REST MUCH OVERNIGHT. TELE RUNNING SR IN . INDEPENDENT TO BSC. CONCERNED OF UTI. URINE CLOUDY, DARK YELLOW, WITH FOUL ODOR. VSS/AFEBRILE. NO OTHER ACUTE CHANGES NOTED. BED REMAINS IN LOWEST POSITION. CALL LIGHT AND BELONGINGS WITHIN REACH. CONTINUE WITH CURRENT PLAN OF CARE. REPORT TO ONCOMING RN.
[2021-03-09 05:38] LABS: Anion Gap 1 mmol/L (6-16); Blood Urea Nitrogen 13 mg/dL (8-24); CO2, Blood 37 mmol/L (21-32); Chloride, Blood 99 mmol/L (98-108); Creatinine, Blood 0.87 mg/dL (0.40-1.00); Glomerular Filtration Rate >60 (60-); Glucose, Blood 106 mg/dL (70-99); Potassium, Blood 3.9 mmol/L (3.5-5.5); Sodium, Blood 137 mmol/L (136-145)
[2021-03-09 09:53] LABS: Source, Urine Clean Catch
[2021-03-09 09:57] LABS: Appearance, Urine Clear (Clear); Bilirubin, Urine Neg (Neg); Blood, Urine Neg (Neg); Color, Urine Yellow (P-Yellow); Glucose Qualitative, Urine Neg (Neg); Ketones, Urine Neg (Neg); Leukocyte Esterase, Urine 1+ (Neg); Nitrite, Urine Neg (Neg); Protein, Urine Neg (Neg); Urobilinogen, Urine NORM (Normal)
[2021-03-09 10:06] LABS: Bacteria Few /hpf; Calcium Oxalate Crystals Rare /hpf; Squamous Epithelial Cells Few /hpf (Few)
--- NOTE | 2021-03-09 16:36 | NUR ---
SHIFT SUMMARY PT SLEEPING AT START OF SHIFT AND MOST OF THE DAY. DIFFICULT TO KEEP AWAKE VERY LONG AT A TIME. PT ANS QUESTIONS APPROPRIATELY WHEN AWAKE, BUT JUST VERY DROWSY. HACK IN TO SEE PT WELL, WHEN PT SLEEPING. PT WOKE FOR 'S VISIT. DISCUSSED C/O BURNING WITH VOIDING. UA ORDERED. PT HAS BEEN UP TO BSC INDEPENDENTLY WELL UP TO BTHRM. NEW DX OF CHF; DIURETICS GIVEN WITH AM MEDS. NO C/O. DENIED NEEDS. VISITOR TO TODAY, BUT PT SENT THEM OUT STATING THAT SHE WANTED TO TAKE A NAP. CALL LT IN REACH.
--- NOTE | 2021-03-10 05:29 | NUR ---
SHIFT SUMMARY A/O, ABLE TO MAKE NEEDS KNOWN. COOPERATIVE WITH CARE. CALLS AND ANSWERS QUESTIONS APPROPRIATELY. NO C/O PAIN/DISCOMFORT. SLEEP STUDY T/O SHIFT. TELE CONTINUES TO RUN SINUS IN 80s. INDEPENDENT IN ROOM. NO ACUTE CHANGES NOTED OVERNIGHT. VSS/AFEBRILE. STATES BURNING WITH URINATION HAS IMPROVED; ENCOURAGED WATER CONSUMPTION, AGREEABLE. BED REMAINS IN LOWEST POSITION. CALL LIGHT AND BELONGINGS WITHIN REACH. CONTINUE WITH CURRENT PLAN OF CARE. REPORT TO ONCOMING RN.
--- NOTE | 2021-03-10 17:05 | NUR ---
SHIFT SUMMARY NO ACUTE CHANGES TO PRESENT THIS SHIFT. PT REMAINS VERY SLEEPY, NAPPING MOST OF THE DAY. DR CORDOVA IN TO SEE PT EARLY THIS AM. LATER DR MANZANO IN TO SEE PT, DISCUSSED PLAN OF CARE. PT TO BE NPO AT [place] FOR POSSIBLE CARDIAC CATH. LASIX CHANGED TO BID. ORDERS TO HOLD LOVENOX AT [place] UNTIL AFTER GOING TO RIVET HAMMER MACHINE OPERATOR TOMORROW. BNP INCREASED THIS AM FROM YESTERDAY AM. DR MANZANO ORDERED TO HAVE BNP RECHECKED AGAIN IN AM. PT UP TO SHOWER LATER THIS AM. INDEPENDENT IN AND TO BTM. DENIES FURTHER NEEDS. CALL LT IN REACH.
--- NOTE | 2021-03-10 19:30 | NUR ---
ASSUMED CARE RECEIVED REPORT FROM JERRY DIAZ. PT ASLEEP, IN NO ACUTE DISTRESS; RESPS E/U. PCU ADVISORY INTERNSHIP REPORTING NSR, HR 86. NO ACUTE NEEDS ASSESSED AT THIS TIME. CALL LIGHT, POSSESSIONS IN REACH.
[2021-03-11 05:14] LABS: Hematocrit 41.3 % (33.0-51.0); Hemoglobin 12.5 g/dL (11.5-16.0); Mean Corpuscular HGB 28.9 pg (26.0-34.0); Mean Corpuscular HGB Conc 30.3 g/dL (31.5-36.5); Mean Corpuscular Volume 96 fL (80-100); Mean Platelet Volume 10.9 fL (9.1-12.4); Platelet Count 193 K/mm3 (150-400); RDW Coefficient Variation 16.2 % (11.7-14.2); RDW Standard Deviation 57.2 fL (35.1-46.3); Red Blood Cell Count 4.32 M/mm3 (3.80-5.20); White Blood Cell Count 4.07 K/mm3 (4.00-11.30)
[2021-03-11 05:32] LABS: Anion Gap 3 mmol/L (6-16); Blood Urea Nitrogen 14 mg/dL (8-24); Bun/Creatinine Ratio 14.7 (12.0-20.0); CO2, Blood 39 mmol/L (21-32); Calcium, Blood 8.6 mg/dL (8.5-10.1); Chloride, Blood 97 mmol/L (98-108); Creatinine, Blood 0.95 mg/dL (0.40-1.00); Glomerular Filtration Rate >60 (60-); Glucose, Blood 96 mg/dL (70-99); Potassium, Blood 3.5 mmol/L (3.5-5.5); Sodium, Blood 139 mmol/L (136-145)
--- NOTE | 2021-03-11 06:33 | NUR ---
ORACLE BUSINESS ANALYST SUMMARY PT ASLEEP, IN NO ACUTE DISTRESS. VS REVIEWED, O2 SATS IN LOW 90'S, >92% WHEN ON 2L/NC, OTHER VS WNL. PT DENIES SOB, DYSPNEA. ASLEEP T/O NIGHT, AWAKENS TO VERBAL STIMULI. NO CARDIAC EVENTS REPORTED OVERNIGHT, HAS BEEN TRENDING NSR, HR IN THE 80'S; NO C/O CP/PRESSURE/SOB. NPO AFTER MIDNIGHT FOR GENERAL CLAIMS AGENT PROCEDURE THIS AM. VOIDING ADEQUATE AMOUNTS CLEAR YELLOW URINE W/O DIFFICULTY. PT DENIES PAIN OR NEEDS AT THIS TIME. CALL LIGHT, POSSESSIONS IN REACH, WILL REPORT OFF TO ONCOMING RN.
[2021-03-11 12:35] LABS: SARS-Cov-2 (COVID-19) PCR, MMC NEGATIVE (NEGATIVE)
--- NOTE | 2021-03-11 12:45 | NUR ---
TRANSFER NOTE PT TRANSFERRING TO FINISH SAW OPERATOR FOR ANGIOGRAM TODAY. PT AxOx4. PLEASANT AND COOPERATIVE WITH CARE. PT WAS SLEEPING MOST OF THIS AM. NPO FOR PROCEDURE. PT'S IN THE ROOM, UPDATED ON PLAN OF CARE. VITALS REVIEWED. PT DENIES PAIN OR OTHER NEEDS. RAPID COVID TEST NEG. SLEEP STUDY RESULTS FOUND IN CHART. REPORT GIVEN TO ELIOT HO RN IN PCU. PT TRANSFERRING TO PCU 15 AFTER PROCEDURE. PT SAFELY ESCORTED OUT VIA WC WITH HEART CENTER STAFF. PT BELONGINGS TRANSFERRED TO PCU ROOM 15.
--- NOTE | 2021-03-11 14:19 | NUR ---
PT ARRIVED FROM HEART CENTER AT APPROXIMATELY 1410. TR BAND AND ARM BOARD IN PLACE ON THE RIGHT RADIAL ACCESS. NO SIGNS OF HEMATOMA, NO DRAINAGE. VS STABLE, PT ON 1L O2 VIA NC TO MAINTAIN SATURATION ABOVE 92%. PT DENIES CHEST PAIN AND PRESSURE AT THIS TIME. PT IS AWAKE, ALERT AND ORIENTED AND HAVING LUNCH
--- NOTE | 2021-03-11 18:11 | NUR ---
SHIFT SUMMARY PT A&Ox4; CALM AND COOPERAIVE WITH CARE. PT RESTING IN BED. UP WITH SBA. PT DENIES PAIN, CHEST PAIN, SOB, NASUEA AND DIZZINESS. PT DESATURATED TO APPROX 86-87%ON RA WHILE SLEEPING; PLACED ON 1-2L POST ANGIO THIS AFTERNOON. RIGHT RADIAL SITE RECOVERED PER PROTOCOL; TEGADERM IN PLACE. NO BLEEDING, BRUISING OR HEMATOMA NOTED. PT RECEIVING IV LASIX. NOTIFIED DR CORDOVA OF SECOND UA RESULTS, NEW ORDER FOR KEFLEX 500MG PO BID, START NOW. VSS. NO OTHER ACUTE CHANGES NOTED. WILL CONTINUE TO MONITOR UNTIL REPORT GIVEN TO ONCOMING RN.
--- NOTE | 2021-03-12 06:14 | NUR ---
STRAINER MILL OPERATOR SUMMARY PT HAS DENIED ANY CP OR PRESSURE THIS SHIFT. PT MAINTAINED O2 SATS >92% ON 2L VIA NC. PT BECOMES VERY TACHYPNEIC W AMBULATION. TELE HAS SHOWN NSR IN 80'S ALL SHIFT. OPSITES ON RR IS C/D/I W NO S/S OF BLEEDING. OPSITE ON R BRACHIAL IS SOFT AND TENDER W MINIMAL OOZING THAT HAS NO CHANGE FROM PREVIOUS DAYSHIFT. PT REFUSED TO WEAR CPAP THIS SHIFT. VSS, WCTM.
--- NOTE | 2021-03-12 15:51 | NUR ---
SHIFT SUMMARY PT A&Ox4; CALM AND COOPERATIVE WITH CARE. PT RESTING IN BED, APPEARS TO BE SLEEPING FOR MAJORITY OF SHIFT. UP IN ROOM WITH SBA. RIGHT RADIAL AND BRACHIAL SITE NOTED; NO CHANGES FROM PREVIOUS SHIFT; NO BLEEDING, BRUISING OR HEMATOMA NOTED. PT DENIES PAIN, CHEST PAIN, SOB, NASUEA AND DIZZINESS. VSS. NO OTHER ACUTE CHAGNES NOTED. WILL CONTINUE TO MONITOR UNITL REPORT GIVEN TO ONCOMING RN.
--- NOTE | 2021-03-12 21:06 | NUR ---
ASSUMED CARE OF PATIENT AT APPROXIMATELY 1905 FROM ELIOT Massey RN. PATIENT ALERT AND ORIENTED X4; INDEPENDENT TO BATHROOM. PATIENT MEDICAL TELE STATUS. PATIENT DENIES PAIN, NUMBNESS, TINGLING, DIZZINESS AND NAUSEA. PATIENT UP TO BATHROOM EVERY 1-2 HOURS; DIURESING AND UTI. NSR ON TELE; OXYGEN SATURATION ABOVE 90% ON 2LPM VIA NC. PIV S/L. ARMBOARD IN PLACE AFTER ANGIO 03/11. PATIENT CURRENTLY RESTING IN BED; CALL LIGHT IN REACH; BED IN LOWEST POSISTION
--- NOTE | 2021-03-13 06:49 | NUR ---
PATIENT SLEPT ABOUT NINE HOURS LAST NIGHT. VSS. NO ACUTE CHANGES
--- NOTE | 2021-03-13 09:53 | NUR ---
MORNING UPDATE, ASSUMED CARE PT WAS SLEEPING DURING MORNING REPORT, VS STABLE, PT ON 1L O2 TO MAINTAIN SATURATION ABOVE 92%. PT IS INDEPENDENT IN THE ROOM. ARM BOARD IN PLACE ON RIGHT RAIDAL ACCESS SITE, NO DRAINAGE NOTED. RIGHT FOREARM VENOUS ACCESS SITE HAS TEG WITH CHG, VERY MINIMAL DRAINAGE NOTED, UNCHANGED FROM PREVIOUS SHIFTS. PT IS AWAITING HOME O2 STUDY AND WILL POSSIBLY DISCHARGE TODAY
[2021-03-13] MEDS ORDERED: CEPH500 PO (11:50)
[2021-03-13] MEDS ORDERED: ASPI81CH PO (11:50)
[2021-03-13] MEDS ORDERED: LISI5 PO (11:51)
[2021-03-13] MEDS ORDERED: METO25ER PO (11:51)
[2021-03-13] MEDS ORDERED: FURO40 PO (11:52)
--- NOTE | 2021-03-13 13:00 | NUR ---
DISCHARGE PT WAS DISCHARGED ON 03/13/21 AT APPROXIMATELY 1250. PT WAS ESCORTED OFF THE UNIT BY COMMUNITY RELATIONS OFFICER AND WAS TRANSFERRED VIA WHEELCHAIR. PT LEFT WITH ALL PERSONAL BELONGINGS WELL NEW O2 EQUIPMENT DELIVERED BY [facility]. VS STABLE, PT LEFT ON 2L O2 PER ORDER AND HOME O2 STUDY. PT RECEIVED EDUCATION FROM RN DULCEO REGARDING HEART FAILURE, VERBAL DISCUSSIONS, HANDOUTS AND TEACH BACK METHODS WERE USED FOR EDUCATION. PT WAS ENCOURAGED TO FOLLOW HEART HEALTHY DIET, MONITOR WEIGHT AND BLOOD PRESSURE AND HEART RATE. PT WAS ENCOURAGED TO COMPLY WITH DISCHARGE ORDERS AND MEDICATIONS AND TO FOLLOW UP WITH BOTH CARDIOLOGY AND PCP. PT GAVE VERBAL UNDERSTANDING DID HER SIGNIFICANT OTHER. IV AND TELE WERE DC'D AND PT LEFT WITH HER SPOUSE
== END 2021-03-13 12:47 | disposition home or self-care (01) | DRG 287 ==
LOC: ER 15:38 → MEDS 15:39 → PCU 03-11 14:05
PROVIDERS: Emergency Medicine; Internal Medicine; Physician Assistant; ADMIT Internal Medicine
PROC: 4A023N8 Measurement of Cardiac Sampling and Pressure, Bilateral, Percutaneous Approach (ICD-10-PCS; principal; 2021-03-11)
PROC: B2111ZZ Fluoroscopy of Multiple Coronary Arteries using Low Osmolar Contrast (ICD-10-PCS; 2021-03-11)
DX: I50.43 Acute on chronic combined systolic (congestive) and diastolic (congestive) heart failure (principal); Z68.43 Body mass index [BMI] 50.0-59.9, adult; N39.0 Urinary tract infection, site not specified; Z20.822 Contact with and (suspected) exposure to COVID-19; Z98.51 Tubal ligation status; E66.01 Morbid (severe) obesity due to excess calories; F17.210 Nicotine dependence, cigarettes, uncomplicated; G47.33 Obstructive sleep apnea (adult) (pediatric); I08.1 Rheumatic disorders of both mitral and tricuspid valves; B96.20 Unspecified Escherichia coli [E. coli] as the cause of diseases classified elsewhere; I27.21 Secondary pulmonary arterial hypertension; Z79.899 Other long term (current) drug therapy
CPT/HCPCS: 36415; 71046; 76937; 80048; 80053; 81001; 82550; 83880; 84484; 85025; 85027; 87077; 87086; 87186; 93005; 93010; 93306; 93460; 94761; 94762; 96372; 96374; 99152; 99285-25; A9270; C1769; C1894; G0378; J1644; J1650; J1940; J2250; J3010; J7030; J7050; Q9967; U0004

== ENCOUNTER 2022-04-10 13:36 | Inpatient (IN) | payer OTHER ==
[~2022-04-10] VITALS: Ht 160 cm; Wt 109.8 kg
[~2022-04-10 13:36] MED LIST changes: +ASPI81CH PO; +CEPH500 PO; +FURO40 PO; +LISI5 PO; +METO25ER PO; +ZYRTEC10 M2 PO
[2022-04-10 14:26] LABS: BASOPHILS ABSOLUTE AUTO 0.02 K/mm3 (0.00-0.23); BASOPHILS PERCENT AUTO 0 % (0-2); EOSINOPHILS ABSOLUTE AUTO 0.05 K/mm3 (0.00-0.68); EOSINOPHILS PERCENT AUTO 1 % (0-6); Hematocrit 44.6 % (33.0-51.0); Hemoglobin 14.4 g/dL (11.5-16.0); IMMATURE GRAN ABSOLUTE AUTO 0.03 K/mm3 (0.00-0.10); IMMATURE GRAN PERCENT AUTO 1 % (0-1); LYMPHOCYTES ABSOLUTE AUTO 1.96 K/mm3 (0.84-5.20); LYMPHOCYTES PERCENT AUTO 38 % (21-46); MONOCYTES ABSOLUTE AUTO 0.28 K/mm3 (0.16-1.47); MONOCYTES PERCENT AUTO 5 % (4-13); Mean Corpuscular HGB 30.4 pg (26.0-34.0); Mean Corpuscular HGB Conc 32.3 g/dL (31.5-36.5); Mean Corpuscular Volume 94 fL (80-100); Mean Platelet Volume 10.5 fL (9.1-12.4); NEUTROPHILS PERCENT AUTO 55 % (41-73); NRBC ABSOLUTE 0.02 K/mm3 (0.00-0.02); NRBC Auto 0.4 /100 WBC (0.0-0.2); Platelet Count 288 K/mm3 (150-400); RDW Coefficient Variation 14.5 % (11.7-14.2); RDW Standard Deviation 49.6 fL (35.1-46.3); Red Blood Cell Count 4.73 M/mm3 (3.80-5.20); White Blood Cell Count 5.14 K/mm3 (4.00-11.30)
[2022-04-10 14:43] LABS: Albumin, Blood 3.3 g/dL (3.4-5.0); Albumin/Globulin Ratio 0.6 (0.8-1.8); Bilirubin, Total 0.3 mg/dL (0.1-1.0); Calcium, Blood 9.8 mg/dL (8.5-10.1); Creatinine, Blood 0.82 mg/dL (0.40-1.00); Potassium, Blood 4.5 mmol/L (3.5-5.5); Total Protein, Blood 9.3 g/dL (6.4-8.2)
[2022-04-10 14:54] LABS: Influenza A, PCR NEGATIVE (NEGATIVE); Influenza B, PCR NEGATIVE (NEGATIVE); Resp Syncytial Virus, PCR NEGATIVE (NEGATIVE); SARS-Cov-2 (COVID-19) PCR, MMC NEGATIVE (NEGATIVE)
[2022-04-10] MEDS ORDERED: POTASSIUM CL ER 10 M (16:21)
--- NOTE | 2022-04-10 19:13 | NUR ---
1850 PT ADMITTED TO ROOM FROM ER. PT AMBULATED SELF TO BED FROM STRETCHER. PRESENTLY ON 2L O2. HUSB AND GRAND DAUGHTER AT BEDSIDE/ PT STATES NO DISTRESS. OBTAINED O2 EXTENSION TO BE ABLE TO REACH BATHROOM. REPORT GIVEN TO CRYSTAL EDWARDS.
--- NOTE | 2022-04-11 04:46 | NUR ---
ASSUMED CARE AT 1900 PT IS A&OX4, SBA TO BR AND IS ABLE TO MAKE NEEDS KNOWN. ARRIVES FROM ED FOR COPD EXACERBATION, PT HAS HX OF CHF WITH HOSPITAL VISIT ON 03/15. PT HAS AUDIBLE WHEEZE, IS ON 2L NC, COMPLAINTS OF SOB. NO REPORTS OF PAIN. RESTS BETWEEN CARES, IS ABLE TO SLEEP 5+ HOURS THIS SHIFT. WILL CONTINUE TO MONITOR AND GIVE REPORT OF ONCOMING NURSE.
[2022-04-11 04:51] LABS: Base Excess Venous 11.3 mmol/L; Bicarbonate Venous 32.4 mmol/L (24.0-30.0); PCO2 Venous 59.1 mmHg (38-42); PO2 Venous 56.1 mmHg (38-42)
[2022-04-11 05:58] LABS: BASOPHILS ABSOLUTE AUTO 0.02 K/mm3 (0.00-0.23); BASOPHILS PERCENT AUTO 0 % (0-2); EOSINOPHILS ABSOLUTE AUTO 0.01 K/mm3 (0.00-0.68); EOSINOPHILS PERCENT AUTO 0 % (0-6); Hematocrit 46.6 % (33.0-51.0); Hemoglobin 14.6 g/dL (11.5-16.0); IMMATURE GRAN ABSOLUTE AUTO 0.05 K/mm3 (0.00-0.10); IMMATURE GRAN PERCENT AUTO 1 % (0-1); LYMPHOCYTES ABSOLUTE AUTO 1.11 K/mm3 (0.84-5.20); LYMPHOCYTES PERCENT AUTO 12 % (21-46); MONOCYTES ABSOLUTE AUTO 0.08 K/mm3 (0.16-1.47); MONOCYTES PERCENT AUTO 1 % (4-13); Mean Corpuscular HGB Conc 31.3 g/dL (31.5-36.5); Mean Corpuscular Volume 96 fL (80-100); Mean Platelet Volume 10.9 fL (9.1-12.4); NEUTROPHILS ABSOLUTE AUTO 7.75 K/mm3 (1.96-9.15); NEUTROPHILS PERCENT AUTO 86 % (41-73); Platelet Count 308 K/mm3 (150-400); RDW Coefficient Variation 14.6 % (11.7-14.2); RDW Standard Deviation 51.3 fL (35.1-46.3); Red Blood Cell Count 4.86 M/mm3 (3.80-5.20); White Blood Cell Count 9.02 K/mm3 (4.00-11.30)
[2022-04-11 06:24] LABS: Albumin, Blood 3.3 g/dL (3.4-5.0); Anion Gap 6 mmol/L (6-16); Blood Urea Nitrogen 18 mg/dL (8-24); Bun/Creatinine Ratio 26.2 (12.0-20.0); CO2, Blood 33 mmol/L (21-32); Calcium, Blood 9.5 mg/dL (8.5-10.1); Chloride, Blood 97 mmol/L (98-108); Creatinine, Blood 0.69 mg/dL (0.40-1.00); Glomerular Filtration Rate 104 (60-); Glucose, Blood 155 mg/dL (70-99); Phosphorus, Blood 3.5 mg/dL (2.5-4.9); Potassium, Blood 4.6 mmol/L (3.5-5.5); Sodium, Blood 136 mmol/L (136-145)
--- NOTE | 2022-04-11 17:10 | NUR ---
SHIFT SUMMARY PT A&O, FOLLOWS COMMANDS. PT REMAINS ON 2L NC, SPO2 >92%. PT SBA TO BATHROOM, CALLS FOR ASSISTANCE. PT STATES SHE FEELS BETTER TODAY. PT SLEEPING THROUGHOUT DAY. NO C/O PAIN, SOB. CALL LIGHT WITHIN REACH. WILL CONTINUE TO MONITOR.
--- NOTE | 2022-04-11 18:04 | NUR ---
AGREE WITH RN NOTES.
[2022-04-12 05:19] LABS: PCO2 Arterial 69.8 mmHg (35-45); PO2 Arterial 63.9 mmHg (80-100); pH Blood Arterial 7.36 (7.35-7.45)
[2022-04-12 06:02] LABS: Albumin, Blood 3.6 g/dL (3.4-5.0); Anion Gap 8 mmol/L (6-16); Blood Urea Nitrogen 24 mg/dL (8-24); Bun/Creatinine Ratio 36.3 (12.0-20.0); CO2, Blood 33 mmol/L (21-32); Calcium, Blood 10.2 mg/dL (8.5-10.1); Chloride, Blood 95 mmol/L (98-108); Creatinine, Blood 0.66 mg/dL (0.40-1.00); Glomerular Filtration Rate 105 (60-); Glucose, Blood 188 mg/dL (70-99); Phosphorus, Blood 4.1 mg/dL (2.5-4.9); Potassium, Blood 4.6 mmol/L (3.5-5.5); Sodium, Blood 136 mmol/L (136-145)
--- NOTE | 2022-04-12 06:41 | NUR ---
CUSTOMER SERVICE AND SALES CONSULTANT SUMMARY PATIENT SLEPT INTERMITTANTLY THROUGH THE NIGHT. NO COMPLAINTS OF PAIN OR DISCOMFORT. 02 REMAINS AT 2L WITH SATURATIONS IN MID 90'S WHILE AWAKE AND 90-92 DURING SLEEP. PATIENT RECEIVED FULL BATH DURING LATE NIGHT TIME. NO OTHER CHANGES NOTED.
--- NOTE | 2022-04-12 08:00 | NUR ---
pt laying in bed very sleepy this am, does open eyes briefly when spoke to, cooperative with assessement, a/ox3, lungs have exp wheezing t/o, dim in bases, resp even and unlabored, no cough noted, hrr, no edema noted, ppp+2, cap refill <3 sec, vs stable, afebrile, iv site is clear and patent, to rac, s.l. btx4, abd flat soft nontender, voids without diff, skin c/w/d, lian fuentes, call light in reach.
--- NOTE | 2022-04-12 18:36 | NUR ---
no acute changes this shift, resting in bed most of the day, speaks on the phone periodically, no needs at this time. call light in reach.
--- NOTE | 2022-04-13 05:16 | NUR ---
PATIENT RESTED COMFORTABLY MOST OF NIGHT. SHE DID APPEAR TO BE LESS SOB THAN THE PREVIOUS NIGHT. NO COMPLAINT OF PAIN OR DISCOMFORT. NO CHANGES NOTED OVERNIGHT
[2022-04-13 06:29] LABS: Albumin, Blood 3.3 g/dL (3.4-5.0); Anion Gap 3 mmol/L (6-16); Blood Urea Nitrogen 28 mg/dL (8-24); Bun/Creatinine Ratio 41.5 (12.0-20.0); CO2, Blood 37 mmol/L (21-32); Calcium, Blood 9.9 mg/dL (8.5-10.1); Chloride, Blood 96 mmol/L (98-108); Creatinine, Blood 0.67 mg/dL (0.40-1.00); Glomerular Filtration Rate 104 (60-); Glucose, Blood 131 mg/dL (70-99); Phosphorus, Blood 3.6 mg/dL (2.5-4.9); Potassium, Blood 4.6 mmol/L (3.5-5.5); Sodium, Blood 136 mmol/L (136-145)
--- NOTE | 2022-04-13 08:26 | NUR ---
pt laying in bed with eyes closed, wakes easily, states she didn't sleep well, wants to go home, feels better today, a/ox3, coopertive with care, follows commands well, denies pain, lungs have faint wheezing, better than yesterday, dim in bases, on 4 liters this am sats 95 to 97%, dry nonproductive cough, hrr, trace edema noted to b/l le, ppp+2, cap refill <3sec, vs stable, afebrile, piv to rac s.l., btx4. abd flat soft nontender, voids without diff, reports no bm since being in hospital, gave miralax this am, skin c/w/d, lian fuentes, call light in reach. RT in room giving a breathing tx.
[2022-04-13] MEDS ORDERED: KLOR-CON 1010 ME8 PO (11:56)
[2022-04-13] MEDS ORDERED: AZIT500 PO (11:57)
[2022-04-13] MEDS ORDERED: GUAI600T33 PO (11:59)
[2022-04-13] MEDS ORDERED: IPRAT-ALBUT 0.5-3 ML INH (12:02)
[2022-04-13] MEDS ORDERED: MIRALAX17 GM PO (12:03)
[2022-04-13] MEDS ORDERED: ALBU8HFA2 INH (12:06)
[2022-04-13] MEDS ORDERED: FLUTICASONE-VI1 EACH INH (12:17)
[2022-04-13] MEDS ORDERED: Prednisone10 MG PO (12:21)
--- NOTE | 2022-04-13 13:40 | NUR ---
pt has been discharged to home, has all belongings, went over discharge instructions with her, she verbalized understanding, iv removed intact, left via wheelchair with healthcare network consultant in attendence.
== END 2022-04-13 13:19 | disposition home or self-care (01) | DRG 189 ==
LOC: ER 13:36 → MEDS 17:37
PROVIDERS: Internal Medicine; Physician Assistant; ADMIT Internal Medicine
DX: J96.01 Acute respiratory failure with hypoxia (principal); J44.1 Chronic obstructive pulmonary disease with (acute) exacerbation; I50.42 Chronic combined systolic (congestive) and diastolic (congestive) heart failure; Z68.41 Body mass index [BMI] 40.0-44.9, adult; Z20.822 Contact with and (suspected) exposure to COVID-19; J20.9 Acute bronchitis, unspecified; I08.1 Rheumatic disorders of both mitral and tricuspid valves; G47.33 Obstructive sleep apnea (adult) (pediatric); I27.20 Pulmonary hypertension, unspecified; E66.01 Morbid (severe) obesity due to excess calories; N80.9 Endometriosis, unspecified; Z71.6 Tobacco abuse counseling; F17.210 Nicotine dependence, cigarettes, uncomplicated; Z79.82 Long term (current) use of aspirin; Z79.899 Other long term (current) drug therapy; Z98.51 Tubal ligation status; Z79.51 Long term (current) use of inhaled steroids; Z99.81 Dependence on supplemental oxygen
CPT/HCPCS: 0241U; 36415; 36600; 71045; 71260; 80053; 80069; 82803; 83880; 85025; 93005; 93010; 93306; 94640; 94664; 94760; 94761; 99285-25; A9270; J1650; J1940; J2930; Q9967

== ENCOUNTER → 2022-07-23 | Outpatient (CLI) | payer OTHER ==
[~2022-07-23] MED LIST changes: +ALBU8HFA2 INH; +AZIT500 PO; +FLUTICASONE-VI1 EACH INH; +GUAI600T33 PO; +IPRAT-ALBUT 0.5-3 ML INH; +KLOR-CON 1010 ME8 PO; +MIRALAX17 GM PO; +POTASSIUM CL ER 10 M; +Prednisone10 MG PO
[2022-07-24 15:11] LABS: HPV 16 Negative (Negative); HPV 18 Negative (Negative); HPV OTHER HR TYPES Negative (Negative)
== END | disposition home or self-care (01) ==
LOC: LAB SHORT 13:15 → LAB 13:15
PROVIDERS: Registered Nurse
DX: Z12.4 Encounter for screening for malignant neoplasm of cervix (principal)
CPT/HCPCS: 87624; G0123

== ENCOUNTER 2023-06-03 09:27 | Day surgery (SDC) | payer OTHER ==
[~2023-06-03] VITALS: Ht 160 cm; Wt 118.8 kg
[2023-06-03] MEDS ORDERED: ACYCLOVIR400 MG PO (10:14)
[2023-06-03] MEDS ORDERED: CATAPRES0.1 MG PO (10:16)
--- NOTE | 2023-06-03 11:33 | NUR ---
06/03/23 1133 Jovana Del Cid LATE ENTRY: WHEN PATIENT IN PRE-OP WAS FALLING ASLEEP RN WAS ASKING QUESTIONS AND WHEN RESPONDING TO QUESTIONS. CHEM BG WAS TAKEN AND RESULTED 103 AT 1035. PATIENT STATED SHE HAS NINA BUT DOES NOT WEAR HER CPAP. PATIENT ALSO HAS COPD. OXYGEN SATURATION FLUCTUATING BETWEEN 91-92 WHILE VITALS WERE BEING TAKEN AND PATIENT WAS AWAKE. SEDATION NURSE ALERTED WHO ALERTED ANESTHESIOLOGIST. PATIENT ALSO TAKES INHALERS BUT IS UNSURE WHAT THEY ARE, STATED HER LUNGS FEEL OK TODAY, DENIES TIGHTNESS.
--- NOTE | 2023-06-03 11:47 | NUR ---
06/03/23 1147 SAVI BISHOP DURING PROCEDURE, SCOPE BECAME BLOCKED DUE TO SEDIMENT IN PT COLON. TROUBLESHOOTING PERFORMED. UNABLE TO CLEAR, SCOPE EXCHANGE PERFORMED.
--- NOTE | 2023-06-03 12:13 | NUR ---
06/03/23 1213 Barb Maher IV DC'D CATH INTACT. PT TOLERATED WELL. COBAN/GAUZE IN PLACE
[2023-06-03 12:14] VITALS: BP 99/65
== END 2023-06-03 12:15 | disposition home or self-care (01) ==
LOC: ORSCSDS 09:27
PROVIDERS: Specialist
PROC: 0DBL8ZX Excision of Transverse Colon, Via Natural or Artificial Opening Endoscopic, Diagnostic (ICD-10-PCS; principal; 2023-06-03 10:30)
PROC: 0DBK8ZX Excision of Ascending Colon, Via Natural or Artificial Opening Endoscopic, Diagnostic (ICD-10-PCS; principal; 2023-06-03 10:30)
DX: Z12.11 Encounter for screening for malignant neoplasm of colon (principal); D49.0 Neoplasm of unspecified behavior of digestive system; K64.8 Other hemorrhoids; K57.30 Diverticulosis of large intestine without perforation or abscess without bleeding; I10 Essential (primary) hypertension; R06.02 Shortness of breath; J44.9 Chronic obstructive pulmonary disease, unspecified; F17.210 Nicotine dependence, cigarettes, uncomplicated; G47.33 Obstructive sleep apnea (adult) (pediatric); E66.9 Obesity, unspecified; E66.01 Morbid (severe) obesity due to excess calories; Z68.42 Body mass index [BMI] 45.0-49.9, adult; Z79.82 Long term (current) use of aspirin; Z79.899 Other long term (current) drug therapy
CPT/HCPCS: 82947; J2704; J7120

== ENCOUNTER 2023-11-21 17:34 | Inpatient (IN) | payer OTHER ==
[~2023-11-21] VITALS: Ht 167.6 cm; Wt 118.8 kg
[~2023-11-21 17:34] MED LIST changes: +ACYCLOVIR400 MG PO; +CATAPRES0.1 MG PO; +L-Lysine500 M1 PO
[2023-11-21 17:58] LABS: Base Excess Venous 13.8 mmol/L; PCO2 Venous 87.9 mmHg (38-42)
[2023-11-21 17:59] LABS: pH Blood Venous 7.27 (7.34-7.37)
[2023-11-21] MEDS ORDERED: Ipratropium/Albuterol SulF 2.5-0.5MG/3 ML Amp INH ONE (18:00)
[2023-11-21] MEDS ORDERED: MethylPREDNISolone Sod Succ 125 MG Vial IV ONE (18:00)
[2023-11-21 18:17] LABS: Hematocrit 37.4 % (33.0-51.0); Hemoglobin 11.6 g/dL (11.5-16.0); Mean Corpuscular HGB 29.9 pg (26.0-34.0); Mean Corpuscular Volume 96 fL (80-100); Mean Platelet Volume 10.7 fL (9.1-12.4); Platelet Count 183 K/mm3 (150-400); RDW Coefficient Variation 16.8 % (11.7-14.2); RDW Standard Deviation 59.7 fL (35.1-46.3); Red Blood Cell Count 3.88 M/mm3 (3.80-5.20)
[2023-11-21 18:28] LABS: Alanine Aminotransfer (ALT/SGP 20 U/L (12-78); Albumin, Blood 3.2 g/dL (3.4-5.0); Albumin/Globulin Ratio 0.6 (0.8-1.8); Alk Phos 80 U/L (50-136); Anion Gap Unable to Calculate mmol/L (6-16); Aspartate Aminotrans (AST/SGOT 49 U/L (12-37); Bilirubin, Total 0.3 mg/dL (0.1-1.0); Blood Urea Nitrogen 14 mg/dL (8-24); Bun/Creatinine Ratio 19.8 (12.0-20.0); CO2, Blood 40 mmol/L (21-32); Calcium, Blood 9.3 mg/dL (8.5-10.1); Chloride, Blood 95 mmol/L (98-108); Creatinine, Blood 0.71 mg/dL (0.40-1.00); Globulin, Blood 5.7 g/dL (2.2-4.0); Glomerular Filtration Rate 100 (60-); Glucose, Blood 157 mg/dL (70-99); Potassium, Blood 4.6 mmol/L (3.5-5.5); Sodium, Blood 131 mmol/L (136-145); Total Protein, Blood 8.9 g/dL (6.4-8.2)
[2023-11-21 18:51] LABS: BAND PERCENT MAN 6 % (0-8); BASOPHILS PERCENT MAN 0 % (0-2); EOSINOPHILS PERCENT MAN 0 % (0-6); LYMPHOCYTES % ATYPICAL MANUAL 2 % (0-0); LYMPHOCYTES ABSOLUTE MAN 0.78 K/mm3 (0.84-5.20); LYMPHOCYTES PERCENT MAN 8 % (21-46); MONOCYTES ABSOLUTE MAN 0.23 K/mm3 (0.16-1.47); MONOCYTES PERCENT MAN 3 % (4-13); NEUTROPHILS ABSOLUTE MAN 6.78 K/mm3 (1.96-9.15); SEG NEUTROPHILS PERCENT MAN 81 % (41-73); TOTAL CELLS COUNTED 100
[2023-11-21 18:59] LABS: Influenza A, PCR NEGATIVE (NEGATIVE); Influenza B, PCR NEGATIVE (NEGATIVE); Resp Syncytial Virus, PCR NEGATIVE (NEGATIVE); SARS-Cov-2 (COVID-19) PCR, MMC NEGATIVE (NEGATIVE)
[2023-11-21] MEDS ORDERED: Furosemide 10 MG/ML 4ML Vial IV ONE (19:20)
[2023-11-21 20:25] LABS: Base Excess Venous 12.3 mmol/L; Bicarbonate Venous 33.2 mmol/L (24.0-30.0); PCO2 Venous 84.3 mmHg (38-42); pH Blood Venous 7.28 (7.34-7.37)
[2023-11-21] MEDS ORDERED: Ipratropium/Albuterol SulF 2.5-0.5MG/3 ML Amp INH SCH (20:55)
[2023-11-21] MEDS ORDERED: Metoprolol Tartrate 25 MG Tab PO SCH (21:00)
[2023-11-21] MEDS ORDERED: FLU VACC QS2023-24(6MOS UP)/PF 60 MCG/0.5 ML SYRINGE IM SCH (21:05)
[2023-11-21] MEDS ORDERED: NS 1,000 ML IV SCH (21:05)
[2023-11-21] MEDS ORDERED: Azithromycin 500 MG in NS 250 ML IV SCH (21:30)
[2023-11-21] MEDS ORDERED: CefTRIAXone Sodium 2,000 MG in NS 100 ML IV SCH (21:30)
[2023-11-21 22:12] LABS: Base Excess Venous 13.2 mmol/L; Bicarbonate Venous 33.7 mmol/L (24.0-30.0); pH Blood Venous 7.25 (7.34-7.37)
[2023-11-21] MEDS ORDERED: NS KCl 20mEq 1,000 ML IV SCH (22:20)
[2023-11-21] MEDS ORDERED: Midazolam HCL 1 MG/ML 5MLVIAL IV ONE (22:50)
[2023-11-21] MEDS ORDERED: propofoL 100 ML IV SCH (23:20)
[2023-11-21 23:30] VITALS: BP 113/59
[2023-11-21 23:45] LABS: Source, Urine Foley catheter
[2023-11-21 23:50] LABS: Bilirubin, Urine Neg (Neg); Blood, Urine 1+ (Neg); Glucose Qualitative, Urine Neg (Neg); Ketones, Urine Neg (Neg); Leukocyte Esterase, Urine Neg (Neg); Nitrite, Urine Neg (Neg); Protein, Urine 3+ (Neg); Urobilinogen, Urine NORM (Normal)
[2023-11-21 23:56] LABS: Color, Urine Yellow (P-Yellow)
[2023-11-21 23:57] LABS: Amorphous Mod (0-Heavy); Appearance, Urine Hazy (Clear); Bacteria Few /hpf; Hyaline Casts 0-2 /lpf (0-2); Red Blood Cells, Urine 0-2 /hpf (0-2); Squamous Epithelial Cells Rare /hpf (Few); White Blood Cells, Urine 0-2 /hpf (0-5)
[2023-11-22] VITALS (68 sets, daily range): BP systolic 80–145; BP diastolic 45–79
[2023-11-22] MEDS ORDERED: MethylPREDNISolone Sod Succ 40 MG VIAL IV SCH
[2023-11-22] MEDS ORDERED: Insulin Regular 100 UNIT/ML 10ML Vial SC SCH
[2023-11-22] MEDS ORDERED: LORazepam 2 MG/ML 1ML Injection IV PRN (00:15)
[2023-11-22] MEDS ORDERED: Ipratropium/Albuterol SulF 2.5-0.5MG/3 ML Amp INH SCH (00:30)
[2023-11-22] MEDS ORDERED: Albuterol 2.5 MG/3 ML VIAL INH PRN (00:30)
[2023-11-22 00:42] LABS: Base Excess Venous 8.9 mmol/L; PCO2 Venous 84.7 mmHg (38-42); pH Blood Venous 7.24 (7.34-7.37)
[2023-11-22 00:43] LABS: Bicarbonate Venous 30.3 mmol/L (24.0-30.0)
--- NOTE | 2023-11-22 00:52 | NUR ---
INITIAL NOTE PATIENT ARRIVED INTUBATED, BP ON LOWER SIDE ON ARRIVAL AND PATIENT AWAKE, FIGHTING VENT, UNABLE TO GET TO FOLLOW COMMANDS, PUPILS EQUAL/REACTIVE, VS OTHERWISE STABLE, A/C PC ON 70% FIO2, P 24/PEEP 8, RATE 20. REMAINS RESTLESS, ATTEMPTED INCREASED SEDATION BUT DUE TO BP DROPPING, REDUCED. OTHER MEDICATIONS GIVEN TO ATTEMPT INCREASED SEDATION, LIGHTS OFF AND MINIMIZE NOISE. PRESENTLY NOREPI AT 8 MCG/KG/MIN, PROPOFOL AT 30 MCG/KG/MIN. RASS +1 TO -1. UPDATED FAMILY. BELONGINGS SENT HOME WITH FAMILY.
[2023-11-22] MEDS ORDERED: NS 500 ML IV ONE (01:00)
[2023-11-22] MEDS ORDERED: Albuterol 2.5 MG/3 ML VIAL INH SCH (01:30)
[2023-11-22] MEDS ORDERED: Hydrogen Peroxide 1.5 % Solution MT SCH (04:00)
[2023-11-22 04:25] LABS: Base Excess Venous 7.1 mmol/L; PCO2 Venous 47.9 mmHg (38-42); pH Blood Venous 7.43 (7.34-7.37)
[2023-11-22 04:27] LABS: Hematocrit 31.1 % (33.0-51.0); Hemoglobin 9.9 g/dL (11.5-16.0); Mean Corpuscular HGB 30.1 pg (26.0-34.0); Mean Corpuscular HGB Conc 31.8 g/dL (31.5-36.5); Mean Corpuscular Volume 95 fL (80-100); Mean Platelet Volume 10.6 fL (9.1-12.4); Platelet Count 184 K/mm3 (150-400); RDW Coefficient Variation 17.2 % (11.7-14.2); RDW Standard Deviation 60.3 fL (35.1-46.3); Red Blood Cell Count 3.29 M/mm3 (3.80-5.20); White Blood Cell Count 9.55 K/mm3 (4.00-11.30)
[2023-11-22 04:49] LABS: Albumin, Blood 2.6 g/dL (3.4-5.0); Albumin/Globulin Ratio 0.5 (0.8-1.8); Bilirubin, Total 0.3 mg/dL (0.1-1.0); Calcium, Blood 8.8 mg/dL (8.5-10.1); Creatinine, Blood 1.35 mg/dL (0.40-1.00); Globulin, Blood 5.1 g/dL (2.2-4.0); Potassium, Blood 3.3 mmol/L (3.5-5.5); Total Protein, Blood 7.7 g/dL (6.4-8.2)
[2023-11-22 05:08] LABS: BAND PERCENT MAN 33 % (0-8); BASOPHILS PERCENT MAN 0 % (0-2); EOSINOPHILS PERCENT MAN 0 % (0-6); LYMPHOCYTES ABSOLUTE MAN 0.57 K/mm3 (0.84-5.20); LYMPHOCYTES PERCENT MAN 6 % (21-46); MONOCYTES ABSOLUTE MAN 0.47 K/mm3 (0.16-1.47); MONOCYTES PERCENT MAN 5 % (4-13); SEG NEUTROPHILS PERCENT MAN 55 % (41-73); TOTAL CELLS COUNTED 100
[2023-11-22 05:09] LABS: PLASMA CELL ABSOLUTE MAN 0.09 K/mm3 (0.00-0.00); PLASMA CELLS PERCENT MAN 1 % (0-0)
[2023-11-22] MEDS ORDERED: Pantoprazole Sodium 40 MG Injection IV SCH (06:00)
--- NOTE | 2023-11-22 07:00 | NUR ---
ASSUMED CARE I ASSUMED CARE OF THIS PATIENT AT 0700. BEDSIDE SHIFT REPORT COMPLETED WITH JERRY BHATT. PATIENT IS INTUBATED AND SEDATED. PROPOFOL @ 30 MCG/KG/MIN, LEVOPHED @ 7 MCG/MIN, NS W/ 20MEQ KCL @ 75 ML/HR. VENT SETTINGS AC/PC 22/15 FIO2 55% AND RATE 22. PATIENT RR 22, TV 430'S, SPO2 ID 90'S, AND ETCO2 36. OGT TO LIS. GARCIA PATENT AND DRAINING TO GRAVITY. NO FAMILY OR VISITORS AT BEDSIDE.
--- NOTE | 2023-11-22 07:06 | NUR ---
SHIFT SUMMARY PATIENT EVENTUALLY MAINTAINED RASS -1 ON PROPOFOL AND BP STABLE ON LEVOPHED, NOTED VBG RESULT LATER, NO ACUTE CHANGES OR CONCERNS NOTED, OTHER ORDERS PERFORMED, REPORT GIVEN TO ONCOMING RN.
[2023-11-22] MEDS ORDERED: Potassium Chloride 20 MEQ/15 ML UDC PO SCH (08:00)
[2023-11-22] MEDS ORDERED: Acetaminophen 160MG / 5ML 10.15 UDC PT PRN (08:10)
[2023-11-22] MEDS ORDERED: FentaNYL Citrate 50 MCG/ML 2 ML Injection IV PRN (08:25)
[2023-11-22] MEDS ORDERED: Lisinopril 10 MG Tab PO SCH (09:00)
[2023-11-22] MEDS ORDERED: Lactobacil 2-S.Thermo-Bifido 1 1 Cap PO SCH (09:00)
[2023-11-22] MEDS ORDERED: Furosemide 10 MG/ML 4ML Vial IV SCH (09:00)
[2023-11-22] MEDS ORDERED: Enoxaparin 40 MG/0.4 ML SYR SC SCH (09:00)
[2023-11-22] MEDS ORDERED: fentaNYL citrate 25 MCG/ML 30ML Bag IV PRN (10:25)
[2023-11-22] MEDS ORDERED: Rocuronium Bromide 10 MG/ML 5ML Injection IV ONE (10:25)
[2023-11-22] MEDS ORDERED: FentaNYL Citrate 50 MCG/ML 2 ML Injection IV ONE (10:25)
[2023-11-22] MEDS ORDERED: NS 250 ML IV PRN (10:45)
[2023-11-22] MEDS ORDERED: Magnesium Sulf 2 GM/Water 50ML 50 ML IV ONE (11:45)
--- NOTE | 2023-11-22 11:55 | NUR ---
FENTANYL STAB SETTER AND DRILLER/ROCURONIUM/UPDATE PATIENT WAS NONCOMPLIANT WITH VENTILATOR. VERBAL ORDER RECEIVED FROM DR. GARRIDO AT BEDSIDE TO ADMINISTER FENTANYL 50MCG IV X1 AND ROCURONIUM 50MG IV X 1, AND START FENTANYL STAB SETTER AND DRILLER 25MCG/HR. DUE TO ROCURONIUM NOT AVAILABLE FOR PROLONGED TIME FROM PHARMACY, VERBAL ORDER FROM DR. GARRIDO RECEIVED FOR PROPOFOL 60MG IV PUSH X 1 PRIOR TO ROCURONIUM ADMINISTRATION AND FOR PROPOFOL GTT TO BE INCREASED TO 50MCG/KG/MIN. MEDICATIONS ADMINISTERED AND GTT INCREASED. NOTIFIED DR. GARRIDO REGARDING PATIENT LOW URINE OUTPUT AND WHEEZING. ORDER RECEIVED FOR MAG SULFATE 2G, LASIX IV TID X 3 DOSES, AND DC NS/ 20MEQ KCL.
[2023-11-22] MEDS ORDERED: Furosemide 10 MG / ML 2ML Vial IV SCH (13:00)
[2023-11-22] MEDS ORDERED: SuccINYLCHOLINE Chloride 100 MG/5 ML 5MLSYR IV ONE (16:29)
[2023-11-22] MEDS ORDERED: Midazolam HCl 1MG / ML 2ML Vial XX ONE (16:29)
--- NOTE | 2023-11-22 17:22 | NUR ---
ASSISTING PRIMARY RN WITH PT CARE: CHG BEDBATH GIVEN, PT DID NOT TOLERATE LYING FLAT VERY WELL, SATS DROPPED TO 87%, FACE BECAME SLIGHTLY PURPLE, PT AGITATED W RASS +2; FENTANYL 25MCG GIVEN FOR SEDATION, PT FLAT ONLY LONG ENOUGH TO CHANGE LINEN OUT. PT APPEARS COMFORTABLE NOW, SATS 93%. PT'S DAUGHTER AND SISTER UPDATED BY IMMIGRATION ASSOCIATE.
--- NOTE | 2023-11-22 18:30 | NUR ---
SHIFT SUMMARY PATIENT REMAINS INTUBATED AND SEDATED. FENTANYL ENTRY LEVEL ADMINISTRATIVE ASSISTANT CONTINUOUS ADDED ADJUNCT TO PROPOFOL FOR VENTILATOR COMPLIANCE. MEDICATED WITH FENTANYL, PROPOFOL, AND ROCURONIUM PUSHES X 1-SEE PREVIOUS NURSE NOTE. LASIX RESTARTED X 3 DOSES. NS W/ KCL DC'D. OGT TO LIS. GARCIA HAD MINIMAL URINE OUTPUT. NO BM THIS SHIFT. BED BATH COMPLETED. NO OTHER CHANGES THIS SHIFT.
[2023-11-22] MEDS ORDERED: Propofol 10mg/ml 20 ml Vial (Procedural) IV ONE (22:43)
[2023-11-23] VITALS (55 sets, daily range): BP systolic 99–146; BP diastolic 57–93
[2023-11-23 04:49] LABS: Hematocrit 29.5 % (33.0-51.0); Hemoglobin 9.4 g/dL (11.5-16.0); Mean Corpuscular HGB Conc 31.9 g/dL (31.5-36.5); Mean Corpuscular Volume 94 fL (80-100); Mean Platelet Volume 10.5 fL (9.1-12.4); NRBC ABSOLUTE 0.02 K/mm3 (0.00-0.02); NRBC Auto 0.1 /100 WBC (0.0-0.2); Platelet Count 209 K/mm3 (150-400); RDW Coefficient Variation 17.2 % (11.7-14.2); RDW Standard Deviation 59.6 fL (35.1-46.3); Red Blood Cell Count 3.13 M/mm3 (3.80-5.20); White Blood Cell Count 14.69 K/mm3 (4.00-11.30)
[2023-11-23 05:05] LABS: Bun/Creatinine Ratio 20.2 (12.0-20.0); Creatinine, Blood 2.08 mg/dL (0.40-1.00); Magnesium, Blood 2.7 mg/dL (1.6-2.4); Phosphorus, Blood 3.1 mg/dL (2.5-4.9); Potassium, Blood 3.5 mmol/L (3.5-5.5)
--- NOTE | 2023-11-23 06:51 | NUR ---
SHIFT SUMMARY: PT REMAINED INTUBATED AND SEDATED. VENT: 22/300/8/50 FENTANYL AT 50MCG/H AND PROPOFOL AT 50MCG/KG/MIN. SHE HAD PERIODS OF TIME WHERE SHE WAS DIFFICULT TO SEDATE AND NONCOMPLIANT WITH THE VENTILATOR. SHE WAS ABLE TO FOLLOW COMMANDS AND SHAKE HER HEAD YES AND NO TO QUESTIONS. HR 70-90 AND BP MAP > 65 ON 5 MCG OF LEVOPHED. PT REMAINED RESTRAINED FOR SAFETY.
[2023-11-23] MEDS ORDERED: Furosemide 10 MG/ML 4ML Vial IV ONE (08:25)
--- NOTE | 2023-11-23 11:45 | NUR ---
EXTUBATION PATIENT SEDATION TURNED OFF AFTER BEING WEANED DOWN. PATIENT AWAKE AND FOLLOWING COMMANDS, COUGHING CONTINUOUSLY AROUND ETT. EXTUBATED AT [address] SWEET AND PLACED ON 10LPM VIA HFNC. SPO2 LOW TO MID 90'S. PATIENT INITIALLY AGITATED AFTER EXTUBATION, YELLING AT STAFF, ATTEMPTING OUT OF BED AND PULLING AT LINES. CALMED DOWN AFTER ABOUT 15 MINUTES AND BECAME EMOTIONAL-CRYING AND APOLOGIZING.
--- NOTE | 2023-11-23 17:58 | NUR ---
SHIFT SUMMARY PATIENT EXTUBATED THIS SHIFT-SEE PREVIOUS NURSE NOTE. PATIENT PASSED BEDSIDE SWALLOW EVAL AND IS TOLERATING PO INTAKE. PUREWICK IN PLACE WITH TOTAL URINE OUTPUT THIS SHIFT OF 260ML. NO BM THIS SHIFT. PATIENT TOLERATED BIPAP FOR SHORT TIME THIS AFTERNOON ON 07/30. HFNC @ 10LPM VIA NC WHEN AWAKE. DAUGHTER ASKED TO BRING PATIENT'S HOME TRILOGY BACK TO HOSPITAL WHEN SHE COMES TO VISIT NEXT. NO OTHER CHANGES THIS SHIFT.
[2023-11-23 20:35] LABS: Albumin, Blood 2.8 g/dL (3.4-5.0); Albumin/Globulin Ratio 0.5 (0.8-1.8); Bilirubin, Total 0.2 mg/dL (0.1-1.0); Bun/Creatinine Ratio 21.4 (12.0-20.0); Calcium, Blood 9.1 mg/dL (8.5-10.1); Creatinine, Blood 2.24 mg/dL (0.40-1.00); Globulin, Blood 5.5 g/dL (2.2-4.0); Magnesium, Blood 2.6 mg/dL (1.6-2.4); Potassium, Blood 3.8 mmol/L (3.5-5.5); Total Protein, Blood 8.3 g/dL (6.4-8.2)
[2023-11-24] VITALS (21 sets, daily range): BP systolic 10–146; BP diastolic 68–105
--- NOTE | 2023-11-24 06:17 | NUR ---
SHIFT SUMMARY: PT SLEPT COMFORTABLY IN BED WITH BIPAP 10/5 45% AND MAINTAINED 02 SATURATION > 95. VSS. PT TOLORATED BIPAP WITH LOW DOSE PRECEDEX. PT SAFETY WAS MAINTAINED. SHE IS A&O X 4 AND ABLE TO EXPRESS NEEDS.
[2023-11-24] MEDS ORDERED: Potassium Chloride 20 MEQ TabCR PO SCH (09:00)
[2023-11-24] MEDS ORDERED: MethylPREDNISolone Sod Succ 40 MG VIAL IV SCH (09:00)
[2023-11-24 09:42] LABS: Hematocrit 31.8 % (33.0-51.0); Hemoglobin 9.6 g/dL (11.5-16.0); Mean Corpuscular HGB 29.2 pg (26.0-34.0); Mean Corpuscular HGB Conc 30.2 g/dL (31.5-36.5); Mean Corpuscular Volume 97 fL (80-100); Mean Platelet Volume 10.5 fL (9.1-12.4); NRBC ABSOLUTE 0.05 K/mm3 (0.00-0.02); NRBC Auto 0.3 /100 WBC (0.0-0.2); Platelet Count 243 K/mm3 (150-400); RDW Coefficient Variation 16.3 % (11.7-14.2); RDW Standard Deviation 58.3 fL (35.1-46.3); Red Blood Cell Count 3.29 M/mm3 (3.80-5.20); White Blood Cell Count 14.53 K/mm3 (4.00-11.30)
[2023-11-24 09:59] LABS: Bun/Creatinine Ratio 26.5 (12.0-20.0); Calcium, Blood 8.8 mg/dL (8.5-10.1); Creatinine, Blood 2.04 mg/dL (0.40-1.00); Magnesium, Blood 2.5 mg/dL (1.6-2.4); Phosphorus, Blood 3.9 mg/dL (2.5-4.9); Potassium, Blood 4.4 mmol/L (3.5-5.5)
[2023-11-24 10:03] LABS: BAND PERCENT MAN 2 % (0-8); BASOPHILS PERCENT MAN 0 % (0-2); EOSINOPHILS PERCENT MAN 0 % (0-6); LYMPHOCYTES ABSOLUTE MAN 0.43 K/mm3 (0.84-5.20); LYMPHOCYTES PERCENT MAN 3 % (21-46); MONOCYTES ABSOLUTE MAN 0.43 K/mm3 (0.16-1.47); MONOCYTES PERCENT MAN 3 % (4-13); NEUTROPHILS ABSOLUTE MAN 13.65 K/mm3 (1.96-9.15); SEG NEUTROPHILS PERCENT MAN 92 % (41-73); TOTAL CELLS COUNTED 100
[2023-11-24] MEDS ORDERED: Acetaminophen 325 MG TABLET PO PRN (15:20)
--- NOTE | 2023-11-24 18:14 | NUR ---
Shift summary. Patient on high flow 02 during dayshift. Up to chair and commode with walker, steady gait. PT/OT brittny completed this shift. No acute changes, pt seems to be improving slightly based on shift report. See chart for further details, will report off to nightshift RN.
[2023-11-25] VITALS (13 sets, daily range): BP systolic 111–147; BP diastolic 69–101
[2023-11-25 05:02] LABS: Hematocrit 31.4 % (33.0-51.0); Hemoglobin 9.4 g/dL (11.5-16.0); Mean Corpuscular HGB 29.4 pg (26.0-34.0); Mean Corpuscular HGB Conc 29.9 g/dL (31.5-36.5); Mean Corpuscular Volume 98 fL (80-100); Mean Platelet Volume 10.4 fL (9.1-12.4); NRBC ABSOLUTE 0.04 K/mm3 (0.00-0.02); NRBC Auto 0.3 /100 WBC (0.0-0.2); Platelet Count 267 K/mm3 (150-400); RDW Coefficient Variation 16.6 % (11.7-14.2); RDW Standard Deviation 59.2 fL (35.1-46.3); White Blood Cell Count 13.69 K/mm3 (4.00-11.30)
[2023-11-25 05:42] LABS: Albumin, Blood 2.6 g/dL (3.4-5.0); Albumin/Globulin Ratio 0.5 (0.8-1.8); Bilirubin, Total 0.2 mg/dL (0.1-1.0); Bun/Creatinine Ratio 29.5 (12.0-20.0); Creatinine, Blood 1.76 mg/dL (0.40-1.00); Globulin, Blood 5.2 g/dL (2.2-4.0); Potassium, Blood 4.3 mmol/L (3.5-5.5); Total Protein, Blood 7.8 g/dL (6.4-8.2)
--- NOTE | 2023-11-25 06:21 | NUR ---
SHIFT SUMMARY A/Ox4 AND COOPERATIVE WITH CARE. ANWERS QUESTIONS APPROPRIATELY AND ABLE TO MAKE HER NEEDS KNOWN. NO ACUTE EVENTS OVERNIGHT FOR PT WAS ABLE TO SLEEP T/O MOST OF THE SHIFT. CARDIAC, REMAINS IN SR 80-90'S WITH NO REPORTS OF CP OR PRESSRE DURING THE NIGHT. SBP HAS BEEN STABLE RANGING 120-140'S. RESPIRATORY, MAINTAINS SPO2 >90% ON 6-7L NC. CONTINUES TO DESAT WITH MODERATE EXERTION. OFTEN TAKES SEVERAL MINUTES AT REST FOR PT TO RECOVER. WORE HOME TRIOLOGY T/O THE NIGHT. GI/, ABLE TO AMBULATE TO BATHROOM WITH MINIMAL ASSISTANCE FROM STAFF. DENIES N/V/D OR ABD PAIN T/O THE SHIFT. PAIN HAS BEEN WELL MANAGED WITH PRN PAIN MEDICATIONS. NO NEW ORDERS AT THIS TIME, WILL REPORT TO ONCOMING RN. AMY COLLIER OF THIS NOTE.
--- NOTE | 2023-11-25 09:34 | NUR ---
CARE OF PT ASSUMED AT 0700. PT AWAKE AND ALERT, 0X3. PT SBA TO TOILET AND THEN TO CHAIR. PT C/O HEADACHE 01/02, TYLENOL GIVEN. PT HAVE SCATTERED WHEZZES T/O BUT DENIES SOB WORSE THAN NORMAL. PT SATS >90% ON 7L N/C. PT USED HOME TRILOGY LAST NIGHT PER REPORT W 7L BLEED IN.
--- NOTE | 2023-11-25 12:22 | NUR ---
Telephone report from Lissette Chavez RN. Anticipate pt arrival to PCU 17
--- NOTE | 2023-11-25 12:23 | NUR ---
REPORT GIVEN TO DAIRY SPECIALIST.
--- NOTE | 2023-11-25 13:50 | NUR ---
pt arrived to PCU 17 in wheelchair. Alert, oriented, and pleasantly conversant. Independently capable of transfer to recliner chair. Vital signs taken and noted stable. On 6 l/minof oxygen, spo2 94% and RR 20/min. She is talking on her phone. States breathing feels much better. Lung sounds are coarse,but she does not have any noticable dyspnea. Home trelegy brought by ICU REGISTERED DENTAL HYGIENIST is at bedside.
[2023-11-25] MEDS ORDERED: Insulin Regular 100 UNIT/ML 10ML Vial SC SCH (16:30)
[2023-11-25] MEDS ORDERED: Enoxaparin 40 MG/0.4 ML SYR SC SCH (21:00)
[2023-11-26 04:05] VITALS: BP 115/65
--- NOTE | 2023-11-26 05:35 | NUR ---
SHIFT SUMMARY PATIENT ALERT AND ORIENTED X4. HAD NO COMPLAINTS OF PAIN. REPORTS SHORTNESS OF BREATH DUE TO EXERTION AND TALKING FOR AN EXTENDED PERIOD OF TIME. PATIENT CONTINUES ON 6-7 LITERS O2 VIA NASAL CANULA WHILE AWAKE, USING HOME TRILOGY FOR SLEEP. VITAL SIGNS STABLE, SINUS RHYTHM ON TELE. NO ACUTE ISSUES NOTED OVERNIGHT. WILL CONTINUE TO MONITOR. CALL LIGHT WITHIN REACH.
[2023-11-26 08:16] VITALS: BP 143/88
[2023-11-26 11:09] VITALS: BP 141/81
[2023-11-26] MEDS ORDERED: CloNIDine 0.1 MG Tab PO PRN (15:05)
[2023-11-26] MEDS ORDERED: Mometasone/Formoterol MDI 100/5 mcg 13 GM INH SCH (15:05)
[2023-11-26 16:34] VITALS: BP 118/78
[2023-11-26 20:42] VITALS: BP 143/86
[2023-11-26] MEDS ORDERED: Melatonin 5 MG Tablet PO SCH (21:00)
[2023-11-26 23:21] VITALS: BP 152/90
[2023-11-27 04:20] VITALS: BP 153/96
[2023-11-27 04:43] LABS: Hematocrit 30.8 % (33.0-51.0); Hemoglobin 9.3 g/dL (11.5-16.0); Mean Corpuscular HGB 29.4 pg (26.0-34.0); Mean Corpuscular HGB Conc 30.2 g/dL (31.5-36.5); Mean Corpuscular Volume 98 fL (80-100); Mean Platelet Volume 9.3 fL (9.1-12.4); NRBC ABSOLUTE 0.03 K/mm3 (0.00-0.02); NRBC Auto 0.5 /100 WBC (0.0-0.2); Platelet Count 274 K/mm3 (150-400); RDW Coefficient Variation 16.5 % (11.7-14.2); RDW Standard Deviation 58.9 fL (35.1-46.3); Red Blood Cell Count 3.16 M/mm3 (3.80-5.20); White Blood Cell Count 6.45 K/mm3 (4.00-11.30)
[2023-11-27 04:56] LABS: Anion Gap Unable to Calculate mmol/L (6-16); Blood Urea Nitrogen 30 mg/dL (8-24); Bun/Creatinine Ratio 30.5 (12.0-20.0); CO2, Blood 38 mmol/L (21-32); Calcium, Blood 8.8 mg/dL (8.5-10.1); Chloride, Blood 104 mmol/L (98-108); Creatinine, Blood 0.98 mg/dL (0.40-1.00); Glomerular Filtration Rate 68 (60-); Glucose, Blood 93 mg/dL (70-99); Potassium, Blood 4.7 mmol/L (3.5-5.5); Sodium, Blood 141 mmol/L (136-145)
--- NOTE | 2023-11-27 05:39 | NUR ---
SHIFT SUMMARY PATIENT ALERT AND ORIENTED X4. MEDICATED PER EMAR FOR A HEADACHE. LUNG SOUNDS COARSE WITH EXPIRATORY WHEEZES, PATIENT DESATURATES WITH ACTIVITY AND REQUIRES INCREASE IN OXYGEN TO HELP MAINTAIN SPO2 >90%. PATIENT WORE HER TRELEGY OVERNIGHT, OCCASIONALLY DESATING WITH EPISODES OF SLEEP APNEA. VITAL SIGNS STABLE, PATIENT DENIES CHEST PAIN. WILL CONTINUE TO MONITOR. CALL LIGHT WITHIN REACH.
[2023-11-27 08:39] VITALS: BP 135/76
[2023-11-27] MEDS ORDERED: Lisinopril 20 MG Tab PO SCH (09:00)
[2023-11-27] MEDS ORDERED: LYSINE 500 MG TABLET PO SCH (09:00)
[2023-11-27] MEDS ORDERED: Potassium Chloride 10 Meq Tablet SA PO SCH (09:00)
[2023-11-27] MEDS ORDERED: Metoprolol Succinate 50 MG TABCR PO SCH (09:00)
[2023-11-27] MEDS ORDERED: Furosemide 40 MG Tab PO SCH (09:00)
[2023-11-27] MEDS ORDERED: Aspirin 81 MG Chew PO SCH (09:00)
[2023-11-27 16:18] VITALS: BP 125/81
--- NOTE | 2023-11-27 18:30 | NUR ---
Pt has been tolerating activity in the room and walking to her bathroom, per her statement; however, noted that she does have spo2 of 87-91% with activity while being monitored in her room with ambulation. She does not feel dyspneic, she says, and she has been wearing oxygen at 4 l/min all today. This morning her oxygen was turned up to 6 l/min during the time she went to the bathroom to prevent hypoxia. She has a cough occasionally, but says that it is not always productive. Lung sounds overall improved since this morning. Home O2 eval was ordered and will be done tomorrow before discharge. OVernight sleep oximetry study to be done tonight.
[2023-11-27 21:21] VITALS: BP 134/89
[2023-11-28 04:31] VITALS: BP 142/87
--- NOTE | 2023-11-28 06:10 | NUR ---
SHIFT SUMMARY PATIENT ALERT AND ORIENTED X4. HAD NO COMPLAINTS OF PAIN OR SHORTNESS OF BREATH. PATIENT CONTINUES ON 4 LITERS O2 VIA NASAL CANULA WHILE AWAKE. SLEEP OXYMETRY STUDY WAS CONDUCTED BY RT OVERNIGHT. VITAL SIGNS STABLE. NO ACUTE ISSUES NOTED OVERNIGHT. WILL CONTINUE TO MONITOR. CALL LIGHT WITHIN REACH.
[2023-11-28 09:03] VITALS: BP 115/68
--- NOTE | 2023-11-28 09:05 | NUR ---
INITIAL ASSESSMENT PATIENT ALERT AND ORIENTED X 4, AFEBRILE. PATIENT GIVEN PRN TYLENOL FOR COMPLAINTS OF HEADACHE. PATIENT INDEPENDENT IN ROOM. PATIENT SATTING 90% AND GREATER ON 4 L NC. PATIENT ON CPAP AT [facility]. LUNGS CLEAR IN UPPER LUNGS AND COARSE IN LOWER LOBES. PATIENT SOB WITH EXERTION. PATIENT HAS OCCASIONAL PRODUCTIVE COUGH. HR IN THE 70S. SBP IN THE 1-TEENS. GI AND WNL. SKIN APPEARS WNL. BED LOW, CALL LIGHT IN REACH. CARE CONTINUES.
[2023-11-28] MEDS ORDERED: MELATONIN5 M1 PO (11:05)
[2023-11-28 12:26] VITALS: BP 123/83
--- NOTE | 2023-11-28 14:06 | NUR ---
SHIFT SUMMARY/ DISCHARGE TO HOME PATIENT REMAINED ALERT AND ORIENTED X 4, AFEBRILE. PATIENT GIVEN TYLENOL OT THIS SHIFT FOR COMPLAINT OF HEADACHE. PATIENT REMAINED INDEPENDENT IN ROOM. PATIENT REMAINED ON 4 TO 6 L NC TO KEEP SATS 90% AND GREATER THROUGHOUT SHIFT. PATIENT SLIGHTLY SOB WITH EXERTION. HR REMAINED IN THE 70S. SBP 1-TEENS TO 120S. GI AND WNL. GOOD APPETITE. ADEQUATE URINE OUTPUT. PATIENT GIVEN ROCEPHIN DOSE EARLY BEFORE DISCHARGE PER DR. DICKSON. HOME O2 GOLDIE PERFORMED THIS SHIFT. BROOKS BROUGHT O2 IN. DAUGHTER CAME TO PICK PATIENT UP. PATIENT TAKEN OUT TO DAUGHTER'S CARE IN WHEELCHAIR BY PATIENT SENIOR RESIDENT CARE DIRECTOR. ALL BELONGINGS SENT WITH PATIENT. PATIENT STATED SHE UNDERSTOOD ALL DISCHARGE INFORMATION AND INSTRUCTIONS. DISCHARGE COMPLETE.
== END 2023-11-28 14:11 | disposition home or self-care (01) | DRG 871 ==
LOC: ER 17:34 → ICUE 21:35 → PCU 11-25 13:37
PROVIDERS: Emergency Medicine; Internal Medicine; Internal Medicine Critical Care Medicine; Student in an Organized Health Care Education/Training Program; ADMIT Internal Medicine
PROC: 5A0935A Assistance with Respiratory Ventilation, Less than 24 Consecutive Hours, High Flow/Velocity Cannula (ICD-10-PCS; principal; 2023-11-21)
PROC: 5A09357 Assistance with Respiratory Ventilation, Less than 24 Consecutive Hours, Continuous Positive Airway Pressure (ICD-10-PCS; 2023-11-21)
PROC: 0T9B70Z Drainage of Bladder with Drainage Device, Via Natural or Artificial Opening (ICD-10-PCS; 2023-11-21)
PROC: 3E033XZ Introduction of Vasopressor into Peripheral Vein, Percutaneous Approach (ICD-10-PCS; 2023-11-21)
PROC: 3E03329 Introduction of Other Anti-infective into Peripheral Vein, Percutaneous Approach (ICD-10-PCS; 2023-11-21)
PROC: 5A1945Z Respiratory Ventilation, 24-96 Consecutive Hours (ICD-10-PCS; 2023-11-21)
PROC: 0BH17EZ Insertion of Endotracheal Airway into Trachea, Via Natural or Artificial Opening (ICD-10-PCS; 2023-11-21)
DX: A40.3 Sepsis due to Streptococcus pneumoniae (principal); G92.8 Other toxic encephalopathy; J13 Pneumonia due to Streptococcus pneumoniae; J96.21 Acute and chronic respiratory failure with hypoxia; R65.21 Severe sepsis with septic shock; J96.22 Acute and chronic respiratory failure with hypercapnia; J44.1 Chronic obstructive pulmonary disease with (acute) exacerbation; J44.0 Chronic obstructive pulmonary disease with (acute) lower respiratory infection; E66.2 Morbid (severe) obesity with alveolar hypoventilation; N17.9 Acute kidney failure, unspecified; E87.20 Acidosis, unspecified; I50.42 Chronic combined systolic (congestive) and diastolic (congestive) heart failure; I11.0 Hypertensive heart disease with heart failure; R73.9 Hyperglycemia, unspecified; T38.0X5A Adverse effect of glucocorticoids and synthetic analogues, initial encounter; B95.62 Methicillin resistant Staphylococcus aureus infection as the cause of diseases classified elsewhere; I27.21 Secondary pulmonary arterial hypertension; F17.210 Nicotine dependence, cigarettes, uncomplicated; Z79.811 Long term (current) use of aromatase inhibitors; Z79.82 Long term (current) use of aspirin; Z79.899 Other long term (current) drug therapy; Z98.890 Other specified postprocedural states; Z99.81 Dependence on supplemental oxygen; Z98.51 Tubal ligation status; E87.6 Hypokalemia; Z91.199 Patient's noncompliance with other medical treatment and regimen due to unspecified reason; Z11.52 Encounter for screening for COVID-19
CPT/HCPCS: 0241U; 31500; 36415; 36569; 51702; 71045; 80048; 80053; 81001; 82803; 82947; 83036; 83605; 83735; 83880; 84100; 84145; 84484; 85025; 85027; 87040; 87070; 87186; 87205; 93005; 93010; 94002; 94003; 94640; 94645; 94660; 94664; 94760; 94761; 94762; 95810; 96365-59; 96375-59; 97110; 97162; 97166; 97530; 97535; 99285-25; A9270; C1751; C9113; J0330; J0456; J0696; J1650; J1815; J1940; J2060; J2250; J2704; J2920; J2930; J3010; J3475; J3480; J7040; J7050; J7060

== ENCOUNTER 2023-12-16 11:50 | Emergency (ER) | payer OTHER ==
[~2023-12-16] VITALS: Ht 160 cm; Wt 120.7 kg
[~2023-12-16 11:50] MED LIST changes: +MELATONIN5 M1 PO
[2023-12-16 15:53] LABS: BASOPHILS PERCENT AUTO 0 % (0-2); EOSINOPHILS ABSOLUTE AUTO 0.04 K/mm3 (0.00-0.68); EOSINOPHILS PERCENT AUTO 1 % (0-6); Hematocrit 31.5 % (33.0-51.0); IMMATURE GRAN ABSOLUTE AUTO 0.01 K/mm3 (0.00-0.10); IMMATURE GRAN PERCENT AUTO 0 % (0-1); LYMPHOCYTES ABSOLUTE AUTO 0.58 K/mm3 (0.84-5.20); LYMPHOCYTES PERCENT AUTO 13 % (21-46); MONOCYTES ABSOLUTE AUTO 0.26 K/mm3 (0.16-1.47); MONOCYTES PERCENT AUTO 6 % (4-13); Mean Corpuscular HGB 29.4 pg (26.0-34.0); Mean Corpuscular HGB Conc 31.7 g/dL (31.5-36.5); Mean Corpuscular Volume 93 fL (80-100); Mean Platelet Volume 10.1 fL (9.1-12.4); NEUTROPHILS ABSOLUTE AUTO 3.48 K/mm3 (1.96-9.15); NEUTROPHILS PERCENT AUTO 80 % (41-73); Platelet Count 238 K/mm3 (150-400); RDW Coefficient Variation 16.2 % (11.7-14.2); RDW Standard Deviation 53.8 fL (35.1-46.3); White Blood Cell Count 4.37 K/mm3 (4.00-11.30)
[2023-12-16 16:06] LABS: Albumin/Globulin Ratio 0.6 (0.8-1.8); Bilirubin, Total 0.5 mg/dL (0.1-1.0); Calcium, Blood 9.2 mg/dL (8.5-10.1); Creatinine, Blood 0.75 mg/dL (0.40-1.00); Globulin, Blood 5.4 g/dL (2.2-4.0); Potassium, Blood 5.3 mmol/L (3.5-5.5); Total Protein, Blood 8.4 g/dL (6.4-8.2)
[2023-12-16] MEDS ORDERED: TRELEGY ELLIPT1 EACH IH (16:19)
[2023-12-16 16:58] LABS: Base Excess Venous 7.9 mmol/L; Bicarbonate Venous 30.7 mmol/L (24.0-30.0); pH Blood Venous 7.42 (7.34-7.37)
[2023-12-16 17:04] LABS: Influenza A, PCR NEGATIVE (NEGATIVE); Influenza B, PCR NEGATIVE (NEGATIVE); Resp Syncytial Virus, PCR NEGATIVE (NEGATIVE); SARS-Cov-2 (COVID-19) PCR, MMC NEGATIVE (NEGATIVE)
[2023-12-16] MEDS ORDERED: Furosemide 10 MG/ML 4ML Vial IV ONE (17:25)
[2023-12-16 17:30] VITALS: BP 140/91
[2023-12-16] MEDS ORDERED: BENZ100A PO (18:16)
== END 2023-12-16 18:21 | disposition home or self-care (01) ==
LOC: ER 11:50
PROVIDERS: Student in an Organized Health Care Education/Training Program
DX: I50.9 Heart failure, unspecified (principal); J44.9 Chronic obstructive pulmonary disease, unspecified; F17.210 Nicotine dependence, cigarettes, uncomplicated; Z79.51 Long term (current) use of inhaled steroids; Z79.82 Long term (current) use of aspirin; Z79.899 Other long term (current) drug therapy
CPT/HCPCS: 0241U; 71046; 80053; 82803; 83880; 85025; 93005; 93010; 96374; 99285-25; J1940

== ENCOUNTER 2024-02-21 19:53 | Emergency (ER) | payer OTHER ==
[~2024-02-21] VITALS: Ht 160 cm; Wt 122.5 kg
[~2024-02-21 19:53] MED LIST changes: +BENZ100A PO; +TRELEGY ELLIPT1 EACH IH
[2024-02-21 19:59] VITALS: BP 124/81
[2024-02-21 20:18] LABS: BASOPHILS ABSOLUTE AUTO 0.02 K/mm3 (0.00-0.23); BASOPHILS PERCENT AUTO 1 % (0-2); EOSINOPHILS ABSOLUTE AUTO 0.07 K/mm3 (0.00-0.68); EOSINOPHILS PERCENT AUTO 2 % (0-6); Hematocrit 36.4 % (33.0-51.0); Hemoglobin 11.8 g/dL (11.5-16.0); IMMATURE GRAN PERCENT AUTO 0 % (0-1); LYMPHOCYTES ABSOLUTE AUTO 1.31 K/mm3 (0.84-5.20); LYMPHOCYTES PERCENT AUTO 35 % (21-46); MONOCYTES ABSOLUTE AUTO 0.15 K/mm3 (0.16-1.47); MONOCYTES PERCENT AUTO 4 % (4-13); Mean Corpuscular HGB 29.5 pg (26.0-34.0); Mean Corpuscular HGB Conc 32.4 g/dL (31.5-36.5); Mean Corpuscular Volume 91 fL (80-100); NEUTROPHILS ABSOLUTE AUTO 2.19 K/mm3 (1.96-9.15); NEUTROPHILS PERCENT AUTO 59 % (41-73); Platelet Count 251 K/mm3 (150-400); RDW Coefficient Variation 14.6 % (11.7-14.2); RDW Standard Deviation 48.9 fL (35.1-46.3); White Blood Cell Count 3.74 K/mm3 (4.00-11.30)
[2024-02-21 20:41] LABS: Albumin, Blood 3.6 g/dL (3.4-5.0); Albumin/Globulin Ratio 0.7 (0.8-1.8); Bilirubin, Total 0.4 mg/dL (0.1-1.0); Bun/Creatinine Ratio 18.7 (12.0-20.0); Calcium, Blood 9.4 mg/dL (8.5-10.1); Creatinine, Blood 0.8 mg/dL (0.40-1.00); Globulin, Blood 5.2 g/dL (2.2-4.0); Potassium, Blood 4.1 mmol/L (3.5-5.5); Total Protein, Blood 8.8 g/dL (6.4-8.2)
[2024-02-21 22:25] LABS: Influenza A, PCR NEGATIVE (NEGATIVE); Influenza B, PCR NEGATIVE (NEGATIVE); Resp Syncytial Virus, PCR NEGATIVE (NEGATIVE); SARS-Cov-2 (COVID-19) PCR, MMC NEGATIVE (NEGATIVE)
== END 2024-02-21 22:54 ==
LOC: ER 19:53
PROVIDERS: Emergency Medicine; Physician Assistant
DX: R53.1 Weakness (principal); R06.00 Dyspnea, unspecified; S20.219A Contusion of unspecified front wall of thorax, initial encounter; S80.212A Abrasion, left knee, initial encounter; F17.210 Nicotine dependence, cigarettes, uncomplicated; J44.9 Chronic obstructive pulmonary disease, unspecified; I50.9 Heart failure, unspecified; W19.XXXA Unspecified fall, initial encounter; Z99.81 Dependence on supplemental oxygen; Z88.8 Allergy status to other drugs, medicaments and biological substances; Z79.51 Long term (current) use of inhaled steroids; Z79.899 Other long term (current) drug therapy
CPT/HCPCS: 0241U; 71046; 80053; 83880; 84484; 85025; 93005; 93010; 99285-25

== ENCOUNTER → 2024-07-15 | Outpatient (CLI) | payer OTHER ==
[2024-07-15 11:48] LABS: BASOPHILS ABSOLUTE AUTO 0.02 K/mm3 (0.00-0.23); BASOPHILS PERCENT AUTO 1 % (0-2); EOSINOPHILS ABSOLUTE AUTO 0.09 K/mm3 (0.00-0.68); EOSINOPHILS PERCENT AUTO 2 % (0-6); Hematocrit 35.4 % (33.0-51.0); Hemoglobin 11.6 g/dL (11.5-16.0); IMMATURE GRAN ABSOLUTE AUTO 0.01 K/mm3 (0.00-0.10); IMMATURE GRAN PERCENT AUTO 0 % (0-1); LYMPHOCYTES ABSOLUTE AUTO 1.29 K/mm3 (0.84-5.20); LYMPHOCYTES PERCENT AUTO 34 % (21-46); MONOCYTES ABSOLUTE AUTO 0.21 K/mm3 (0.16-1.47); MONOCYTES PERCENT AUTO 6 % (4-13); Mean Corpuscular HGB Conc 32.8 g/dL (31.5-36.5); Mean Corpuscular Volume 95 fL (80-100); Mean Platelet Volume 10.7 fL (9.1-12.4); NEUTROPHILS ABSOLUTE AUTO 2.14 K/mm3 (1.96-9.15); NEUTROPHILS PERCENT AUTO 57 % (41-73); Platelet Count 218 K/mm3 (150-400); RDW Coefficient Variation 14.3 % (11.7-14.2); RDW Standard Deviation 48.9 fL (35.1-46.3); Red Blood Cell Count 3.74 M/mm3 (3.80-5.20); White Blood Cell Count 3.76 K/mm3 (4.00-11.30)
[2024-07-15 13:15] LABS: Albumin, Blood 3.7 g/dL (3.4-5.0); Albumin/Globulin Ratio 0.8 (0.8-1.8); Bilirubin, Total 0.5 mg/dL (0.1-1.0); Bun/Creatinine Ratio 19.9 (12.0-20.0); Calcium, Blood 9.1 mg/dL (8.5-10.1); Creatinine, Blood 0.9 mg/dL (0.40-1.00); Globulin, Blood 4.7 g/dL (2.2-4.0); Potassium, Blood 4.2 mmol/L (3.5-5.5); Total Protein, Blood 8.4 g/dL (6.4-8.2)
== END ==
LOC: LAB SHORT 11:22 → LAB 11:22
PROVIDERS: Nurse Practitioner Family
DX: R07.9 Chest pain, unspecified (principal)
CPT/HCPCS: 80053; 84484; 85025

== ENCOUNTER 2024-09-19 18:04 | Emergency (ER) | payer OTHER ==
[~2024-09-19] VITALS: Ht 160 cm; Wt 136.1 kg
[2024-09-19] MEDS ORDERED: Hydroxyzine HCl50 MG (21:52)
[2024-09-19 22:31] VITALS: BP 95/64
[2024-09-19] MEDS ORDERED: LIDO700A20 TOP (22:34)
[2024-09-19] MEDS ORDERED: DIAZ2 PO (22:34)
== END 2024-09-19 22:40 | disposition home or self-care (01) ==
LOC: ER 18:04
DX: S16.1XXA Strain of muscle, fascia and tendon at neck level, initial encounter (principal); S39.012A Strain of muscle, fascia and tendon of lower back, initial encounter; G44.209 Tension-type headache, unspecified, not intractable; R07.89 Other chest pain; I50.9 Heart failure, unspecified; J44.9 Chronic obstructive pulmonary disease, unspecified; F17.210 Nicotine dependence, cigarettes, uncomplicated; Z88.8 Allergy status to other drugs, medicaments and biological substances; Z79.82 Long term (current) use of aspirin; Z79.899 Other long term (current) drug therapy; Z59.89 Other problems related to housing and economic circumstances; V89.2XXA Person injured in unspecified motor-vehicle accident, traffic, initial encounter
CPT/HCPCS: 71046; 93005; 93010; 99284-25

== ENCOUNTER → 2024-11-22 | Outpatient (CLI) | payer OTHER ==
[~2024-11-22] MED LIST changes: +DIAZ2 PO; +Hydroxyzine HCl50 MG; +LIDO700A20 TOP; +METO50ER PO; +PRED20 PO; +SULFAMETHOXAZO1 EAC1 PO
== END | disposition home or self-care (01) ==
LOC: LAB 18:01 → LAB SHORT 18:01
DX: R30.0 Dysuria (principal)
CPT/HCPCS: 87086

== ENCOUNTER 2024-11-25 20:07 | Emergency (ER) | payer OTHER ==
[~2024-11-25] VITALS: Ht 162.6 cm; Wt 137.0 kg
[~2024-11-25 20:07] MED LIST changes: -METO50ER PO; -PRED20 PO; -SULFAMETHOXAZO1 EAC1 PO
[2024-11-25 21:08] LABS: BASOPHILS PERCENT AUTO 0 % (0-2); EOSINOPHILS PERCENT AUTO 0 % (0-6); Hematocrit 32.3 % (33.0-51.0); Hemoglobin 10.3 g/dL (11.5-16.0); IMMATURE GRAN ABSOLUTE AUTO 0.03 K/mm3 (0.00-0.10); IMMATURE GRAN PERCENT AUTO 1 % (0-1); LYMPHOCYTES ABSOLUTE AUTO 0.64 K/mm3 (0.84-5.20); LYMPHOCYTES PERCENT AUTO 11 % (21-46); MONOCYTES ABSOLUTE AUTO 0.14 K/mm3 (0.16-1.47); MONOCYTES PERCENT AUTO 2 % (4-13); Mean Corpuscular HGB Conc 31.9 g/dL (31.5-36.5); Mean Corpuscular Volume 94 fL (80-100); Mean Platelet Volume 10.4 fL (9.1-12.4); NEUTROPHILS ABSOLUTE AUTO 5.11 K/mm3 (1.96-9.15); NEUTROPHILS PERCENT AUTO 86 % (41-73); Platelet Count 248 K/mm3 (150-400); RDW Coefficient Variation 14.9 % (11.7-14.2); RDW Standard Deviation 50.5 fL (35.1-46.3); Red Blood Cell Count 3.43 M/mm3 (3.80-5.20); White Blood Cell Count 5.92 K/mm3 (4.00-11.30)
[2024-11-25 21:12] LABS: Albumin, Blood 3.6 g/dL (3.4-5.0); Albumin/Globulin Ratio 0.8 (0.8-1.8); Bilirubin, Total 0.3 mg/dL (0.1-1.0); Calcium, Blood 9.1 mg/dL (8.5-10.1); Creatinine, Blood 1.07 mg/dL (0.40-1.00); Globulin, Blood 4.7 g/dL (2.2-4.0); Potassium, Blood 4.8 mmol/L (3.5-5.5); Total Protein, Blood 8.3 g/dL (6.4-8.2)
[2024-11-25 22:52] LABS: Base Excess Venous 1.6 mmol/L; Bicarbonate Venous 25.5 mmol/L (24.0-30.0); PCO2 Venous 44.2 mmHg (38-42); pH Blood Venous 7.39 (7.34-7.37)
[2024-11-25] MEDS ORDERED: Furosemide 10 MG/ML 4ML Vial IV ONE (23:00)
[2024-11-25] MEDS ORDERED: METO50ER PO (23:04)
[2024-11-25] MEDS ORDERED: PRED20 PO (23:04)
[2024-11-25] MEDS ORDERED: SULFAMETHOXAZO1 EAC1 PO (23:04)
[2024-11-25 23:23] VITALS: BP 127/80
== END 2024-11-25 23:30 | disposition home or self-care (01) ==
LOC: ER 20:07
PROVIDERS: Emergency Medicine
DX: I50.9 Heart failure, unspecified (principal); F17.210 Nicotine dependence, cigarettes, uncomplicated; G47.33 Obstructive sleep apnea (adult) (pediatric); Z79.82 Long term (current) use of aspirin; Z79.51 Long term (current) use of inhaled steroids; Z79.899 Other long term (current) drug therapy; Z88.8 Allergy status to other drugs, medicaments and biological substances
CPT/HCPCS: 71046; 80053; 82803; 83880; 84484; 85025; 93005; 93010; 96374; 99285-25; J1940

== ENCOUNTER 2025-02-22 09:19 | Inpatient (IN) | payer OTHER ==
[~2025-02-22] VITALS: Ht 160 cm; Wt 130.8 kg
[~2025-02-22 09:19] MED LIST changes: -LISI5 PO; +METO50ER PO; +PRED20 PO; +Prinivil10 MG PO; +SULFAMETHOXAZO1 EAC1 PO; -TRELEGY ELLIPT1 EACH IH; +TRELEGY ELLIPT1 EACH INH
[2025-02-22] MEDS ORDERED: Ipratropium Bromide INH 0.02% 0.5 mg/2.5ML Vial INH SCH ×2 (09:45→11:40)
[2025-02-22] MEDS ORDERED: Albuterol 2.5 MG/3 ML VIAL INH SCH ×2 (09:45→11:40)
[2025-02-22 10:12] LABS: Base Excess Venous 4.1 mmol/L; Bicarbonate Venous 27.7 mmol/L (24.0-30.0); PCO2 Venous 41.2 mmHg (38-42); pH Blood Venous 7.44 (7.34-7.37)
[2025-02-22 10:15] LABS: BASOPHILS ABSOLUTE AUTO 0.02 K/mm3 (0.00-0.23); BASOPHILS PERCENT AUTO 0 % (0-2); EOSINOPHILS ABSOLUTE AUTO 0.02 K/mm3 (0.00-0.68); EOSINOPHILS PERCENT AUTO 0 % (0-6); Hematocrit 33.9 % (33.0-51.0); Hemoglobin 11.2 g/dL (11.5-16.0); IMMATURE GRAN ABSOLUTE AUTO 0.01 K/mm3 (0.00-0.10); IMMATURE GRAN PERCENT AUTO 0 % (0-1); LYMPHOCYTES PERCENT AUTO 20 % (21-46); MONOCYTES ABSOLUTE AUTO 0.31 K/mm3 (0.16-1.47); MONOCYTES PERCENT AUTO 6 % (4-13); Mean Corpuscular HGB 29.9 pg (26.0-34.0); Mean Corpuscular Volume 91 fL (80-100); Mean Platelet Volume 10.1 fL (9.1-12.4); NEUTROPHILS ABSOLUTE AUTO 3.73 K/mm3 (1.96-9.15); NEUTROPHILS PERCENT AUTO 73 % (41-73); Platelet Count 174 K/mm3 (150-400); RDW Coefficient Variation 14.5 % (11.7-14.2); RDW Standard Deviation 48.2 fL (35.1-46.3); Red Blood Cell Count 3.74 M/mm3 (3.80-5.20); White Blood Cell Count 5.09 K/mm3 (4.00-11.30)
[2025-02-22 10:36] LABS: Influenza A, PCR NEGATIVE (NEGATIVE); Influenza B, PCR NEGATIVE (NEGATIVE); Resp Syncytial Virus, PCR NEGATIVE (NEGATIVE); SARS-Cov-2 (COVID-19) PCR, MMC NEGATIVE (NEGATIVE)
[2025-02-22 11:02] LABS: Albumin, Blood 3.4 g/dL (3.4-5.0); Albumin/Globulin Ratio 0.6 (0.8-1.8); Bilirubin, Total 0.5 mg/dL (0.1-1.0); Bun/Creatinine Ratio 12.8 (12.0-20.0); Calcium, Blood 8.7 mg/dL (8.5-10.1); Creatinine, Blood 0.78 mg/dL (0.40-1.00); Globulin, Blood 5.3 g/dL (2.2-4.0); Potassium, Blood 3.6 mmol/L (3.5-5.5); Total Protein, Blood 8.7 g/dL (6.4-8.2)
[2025-02-22] MEDS ORDERED: DiphenhydrAMINE HCl 50 MG/ML 1ML Vial IV ONE (11:40)
[2025-02-22] MEDS ORDERED: CefTRIAXone Sodium 1,000 MG in NS 100 ML IV ONE (11:45)
[2025-02-22] MEDS ORDERED: Azithromycin 500 MG in NS 250 ML IV ONE (11:45)
[2025-02-22] MEDS ORDERED: Albuterol 2.5 MG/3 ML VIAL INH PRN (13:40)
[2025-02-22] MEDS ORDERED: Ipratropium/Albuterol SulF 2.5-0.5MG/3 ML Amp INH SCH (13:40)
[2025-02-22 15:26] VITALS: BP 128/73
[2025-02-22] MEDS ORDERED: Acetaminophen 325 MG TABLET PO PRN (15:30)
[2025-02-22] MEDS ORDERED: Benzonatate 100 MG Cap PO PRN (15:30)
[2025-02-22] MEDS ORDERED: Tiotropium Bromide 2.5 MCG/ACT MIST INHAL (10 ACT/4 GM) INH SCH (15:45)
[2025-02-22] MEDS ORDERED: Mometasone/Formoterol MDI 100/5 mcg 13 GM INH SCH (15:45)
--- NOTE | 2025-02-22 17:09 | NUR ---
REVIEWED CHARTING ENTERED BY ELIOT TALAMANTES, STUDENT NURSE AND I AGREE WITH HER DOCUMENATION FOR THIS PATIENT.
[2025-02-22 19:04] VITALS: BP 136/71
--- NOTE | 2025-02-22 19:15 | NUR ---
RECEIVED BEDSIDE REPORT. PT ON 3L WHICH IS HER BASELINE. NOTED SOB WITH CONVERSATION. A/O X 4. WILL CONTINUE TO PROVIDE CARE T/O SHIFT. CALL LT IN REACH.
--- NOTE | 2025-02-22 20:26 | NUR ---
PT AWAKE AND TALKING ON THE PHONE. CALL LT IN REACH.
[2025-02-22] MEDS ORDERED: Lactobacil 2-S.Thermo-Bifido 1 1 Cap PO SCH (21:00)
[2025-02-22] MEDS ORDERED: MethylPREDNISolone Sod Succ 125 MG Vial IV SCH (21:00)
[2025-02-22] MEDS ORDERED: Melatonin 5 MG Tablet PO SCH (21:00)
--- NOTE | 2025-02-22 22:59 | NUR ---
PT RESTING QUIETLY. TRILOGY IN PLACE, CONT BIOX AT 92%. CALL LT IN REACH.
--- NOTE | 2025-02-23 00:45 | NUR ---
PT RESTING QUIETLY. ON TRILOGY, CONT BIOX 93%. CALL LT IN REACH.
--- NOTE | 2025-02-23 03:14 | NUR ---
PT CONTINUES TO REST QUIETLY. 94% CONT BIOX ON TRILOGY CPAP. CALL LT IN REACH.
--- NOTE | 2025-02-23 04:11 | NUR ---
SHIFT SUMMARY: A/O X 4. INDEP IN RM. WEARS 3L 02 VIA NC HER BASELINE. TRILOGY CPAP AT HS. O2 SATS PER CONT BIOX 92-94% T/O SHIFT. PT RESTED WELL T/O SHIFT. NO ACUTE CHANGES. WILL CONTINUE TO PROVIDE CARE UNTIL SHIFT REPORT TO ONCOMING NURSE. CALL LT IN REACH.
[2025-02-23 04:15] VITALS: BP 129/77
[2025-02-23 04:54] LABS: BASOPHILS ABSOLUTE AUTO 0.01 K/mm3 (0.00-0.23); BASOPHILS PERCENT AUTO 0 % (0-2); Hematocrit 33.4 % (33.0-51.0); Hemoglobin 10.8 g/dL (11.5-16.0); LYMPHOCYTES ABSOLUTE AUTO 0.64 K/mm3 (0.84-5.20); LYMPHOCYTES PERCENT AUTO 12 % (21-46); MONOCYTES ABSOLUTE AUTO 0.24 K/mm3 (0.16-1.47); MONOCYTES PERCENT AUTO 5 % (4-13); Mean Corpuscular HGB 29.7 pg (26.0-34.0); Mean Corpuscular HGB Conc 32.3 g/dL (31.5-36.5); Mean Corpuscular Volume 92 fL (80-100); Mean Platelet Volume 10.8 fL (9.1-12.4); Platelet Count 197 K/mm3 (150-400); RDW Coefficient Variation 14.4 % (11.7-14.2); RDW Standard Deviation 48.7 fL (35.1-46.3); Red Blood Cell Count 3.64 M/mm3 (3.80-5.20); White Blood Cell Count 5.34 K/mm3 (4.00-11.30)
[2025-02-23 05:01] LABS: EOSINOPHILS PERCENT AUTO 0 % (0-6); IMMATURE GRAN ABSOLUTE AUTO 0.01 K/mm3 (0.00-0.10); IMMATURE GRAN PERCENT AUTO 0 % (0-1); NEUTROPHILS ABSOLUTE AUTO 4.44 K/mm3 (1.96-9.15); NEUTROPHILS PERCENT AUTO 83 % (41-73)
[2025-02-23 05:18] LABS: BAND PERCENT MAN 3 % (0-8); BASOPHILS PERCENT MAN 0 % (0-2); EOSINOPHILS PERCENT MAN 0 % (0-6); LYMPHOCYTES ABSOLUTE MAN 0.58 K/mm3 (0.84-5.20); LYMPHOCYTES PERCENT MAN 11 % (21-46); MONOCYTES ABSOLUTE MAN 0.21 K/mm3 (0.16-1.47); MONOCYTES PERCENT MAN 4 % (4-13); NEUTROPHILS ABSOLUTE MAN 4.53 K/mm3 (1.96-9.15); SEG NEUTROPHILS PERCENT MAN 82 % (41-73); TOTAL CELLS COUNTED 100
[2025-02-23 05:24] LABS: Albumin, Blood 3.1 g/dL (3.4-5.0); Albumin/Globulin Ratio 0.6 (0.8-1.8); Bilirubin, Total 0.2 mg/dL (0.1-1.0); Bun/Creatinine Ratio 18.1 (12.0-20.0); Calcium, Blood 9.3 mg/dL (8.5-10.1); Creatinine, Blood 0.78 mg/dL (0.40-1.00); Globulin, Blood 5.2 g/dL (2.2-4.0); Potassium, Blood 4.2 mmol/L (3.5-5.5); Total Protein, Blood 8.3 g/dL (6.4-8.2)
[2025-02-23 07:11] VITALS: BP 121/74
[2025-02-23] MEDS ORDERED: Metoprolol Succinate 50 MG TABCR PO SCH (09:00)
[2025-02-23] MEDS ORDERED: Lisinopril 20 MG Tab PO SCH (09:00)
[2025-02-23] MEDS ORDERED: Furosemide 40 MG Tab PO SCH (09:00)
[2025-02-23] MEDS ORDERED: Aspirin 81 MG Chew PO SCH (09:00)
[2025-02-23] MEDS ORDERED: Enoxaparin 40 MG/0.4 ML SYR SC SCH (09:00)
[2025-02-23] MEDS ORDERED: Azithromycin 500 MG in NS 250 ML IV SCH (09:00)
[2025-02-23] MEDS ORDERED: HyDROXyzine HCl 25 MG Tab PO PRN (10:00)
--- NOTE | 2025-02-23 11:07 | NUR ---
"Spiritual Care Visit | Pt. request Pt. is sitting up in bed and welcomes my visit. Pt. is pleasant. Facilitated a life review. Listen with interest and empathy. Consider matters of rahat and belief. Pt. requested a bible. Pt. displayed evidence of awareness, engagement, and hope. Prayed with the Pt. and then provided her with a New Testament. Pt. verbalized gratitude for the spiriual care visit and the bible."
[2025-02-23] MEDS ORDERED: Hydroxyzine HCl50 MG PO (12:24)
--- NOTE | 2025-02-23 16:44 | NUR ---
SHIFT SUMMARY: NO EVENTS OR CHANGES WITH THE PATIENT THROUGHOUT THE SHIFT. SHE IS IN BED, ALERT, TALKATIVE ON THE PHONE, CALL LIGHT WITHIN REACH, NO SIGNS OR SYMPTOMS OF DISTRESS, PLAN OF CARE ONGOING. POSSIBLE DISCHARGE TOMORROW 02/24/25.
[2025-02-23 19:09] VITALS: BP 129/70
[2025-02-24 04:34] VITALS: BP 139/87
--- NOTE | 2025-02-24 07:27 | NUR ---
KEYPUNCH OPERATOR SUMMARY NO ACUTE CHANGES. PT A/O4. ABLE TO MAKE NEEDS KNOWN. CALL LIGHT ACCESSIBLE. PT COMPLIANT WITH TRILLOGY T/O THE NIGHT. PT REPORTS FEELING IMPROVED.
[2025-02-24 07:29] VITALS: BP 100/58
[2025-02-24] MEDS ORDERED: PRED20 PO (11:20)
[2025-02-24] MEDS ORDERED: IPRAT-ALBUT 0.5-3 ML INH (11:20)
--- NOTE | 2025-02-24 12:54 | NUR ---
DISCHARGE NOTE: WENT OVER THE DISCHARGE WITH THE PATIENT; SHE HOOKED HERSELF UP TO HER PERSONAL PORTABLE OXYGEN TANK. SHE WAS WHEELED DOWN BY FAMILY MEMBER. NO SIGNS OR SYMPTOMS OF DISTRESS DURING DISCHARGE.
--- NOTE | 2025-02-24 16:55 | NUR ---
REVIEWED HEEL SEWER'S DOCUMENTATION AND AGREEABLE WITH FINDINGS.
== END 2025-02-24 12:58 | disposition home or self-care (01) | DRG 189 ==
LOC: ER 09:19 → MEDS 13:36 → ENPENDDIS 02-24 11:08 → MEDS 02-24 12:58
PROVIDERS: Family Medicine; Student in an Organized Health Care Education/Training Program; ADMIT Internal Medicine
DX: J96.21 Acute and chronic respiratory failure with hypoxia (principal); I50.42 Chronic combined systolic (congestive) and diastolic (congestive) heart failure; J44.1 Chronic obstructive pulmonary disease with (acute) exacerbation; I11.0 Hypertensive heart disease with heart failure; G47.33 Obstructive sleep apnea (adult) (pediatric); I27.29 Other secondary pulmonary hypertension; Z99.81 Dependence on supplemental oxygen; Z88.8 Allergy status to other drugs, medicaments and biological substances; Z79.51 Long term (current) use of inhaled steroids; Z79.2 Long term (current) use of antibiotics; Z79.82 Long term (current) use of aspirin; Z87.891 Personal history of nicotine dependence
CPT/HCPCS: 0241U; 36415; 71045; 80053; 82803; 83880; 84145; 84484; 85025; 87070; 87205; 93005; 93010; 94640; 94644; 94664; 94760; 94762; 96365; 96372; 96375; 96376; 99285-25; A9270; G0378; J0456; J0696; J1200; J1650; J2919; J7050

== ENCOUNTER 2025-09-19 21:58 | Emergency (ER) | payer OTHER ==
[~2025-09-19] VITALS: Ht 160 cm; Wt 112.5 kg
[~2025-09-19 21:58] MED LIST changes: +Hydroxyzine HCl50 MG PO
[2025-09-19 22:13] LABS: BASOPHILS ABSOLUTE AUTO 0.02 K/mm3 (0.00-0.23); BASOPHILS PERCENT AUTO 1 % (0-2); EOSINOPHILS ABSOLUTE AUTO 0.07 K/mm3 (0.00-0.68); EOSINOPHILS PERCENT AUTO 2 % (0-6); Hematocrit 32.3 % (33.0-51.0); Hemoglobin 11.0 g/dL (11.5-16.0); IMMATURE GRAN ABSOLUTE AUTO 0.01 K/mm3 (0.00-0.10); IMMATURE GRAN PERCENT AUTO 0 % (0-1); LYMPHOCYTES ABSOLUTE AUTO 1.74 K/mm3 (0.84-5.20); LYMPHOCYTES PERCENT AUTO 40 % (21-46); MONOCYTES ABSOLUTE AUTO 0.28 K/mm3 (0.16-1.47); MONOCYTES PERCENT AUTO 7 % (4-13); Mean Corpuscular HGB Conc 34.1 g/dL (31.5-36.5); Mean Corpuscular Volume 90 fL (80-100); NEUTROPHILS ABSOLUTE AUTO 2.22 K/mm3 (1.96-9.15); NEUTROPHILS PERCENT AUTO 51 % (41-73); NRBC ABSOLUTE 0.00 K/mm3 (0.00-0.02); NRBC Auto 0.0 /100 WBC (0.0-0.2); Platelet Count 213 K/mm3 (150-400); RDW Coefficient Variation 13.7 % (11.7-14.2); RDW Standard Deviation 44.9 fL (35.1-46.3)
[2025-09-19 22:31] LABS: Alanine Aminotransfer (ALT/SGP 29.0 U/L (12-78); Albumin, Blood 3.8 g/dL (3.4-5.0); Albumin/Globulin Ratio 0.8 (0.8-1.8); Anion Gap 8.0 mmol/L (3-11); Aspartate Aminotrans (AST/SGOT 40.0 U/L (12-37); Bilirubin, Direct 0.2 mg/dL (0.0-0.3); Bilirubin, Indirect 0.3 mg/dL (0.1-0.7); Bilirubin, Total 0.5 mg/dL (0.1-1.0); Blood Urea Nitrogen 28.0 mg/dL (8-24); CO2, Blood 28.0 mmol/L (21-32); Calcium, Blood 8.9 mg/dL (8.5-10.1); Chloride, Blood 104.0 mmol/L (98-108); Creatinine, Blood 1.98 mg/dL (0.40-1.00); Globulin, Blood 4.6 g/dL (2.2-4.0); Glucose, Blood 129.0 mg/dL (70-99); Potassium, Blood 3.4 mmol/L (3.5-5.5); Sodium, Blood 137.0 mmol/L (136-145); Total Protein, Blood 8.4 g/dL (6.4-8.2)
[2025-09-20] MEDS ORDERED: FAMO20 PO (01:42)
[2025-09-20 02:15] VITALS: BP 105/71
== END 2025-09-20 02:23 | disposition home or self-care (01) ==
LOC: ER 21:58
PROVIDERS: Emergency Medicine
DX: R07.89 Other chest pain (principal); N17.9 Acute kidney failure, unspecified; K21.9 Gastro-esophageal reflux disease without esophagitis; I50.9 Heart failure, unspecified; J44.9 Chronic obstructive pulmonary disease, unspecified; F17.210 Nicotine dependence, cigarettes, uncomplicated; Z88.8 Allergy status to other drugs, medicaments and biological substances; Z79.82 Long term (current) use of aspirin; Z79.899 Other long term (current) drug therapy
CPT/HCPCS: 71045; 80048; 80076; 83690; 84484; 85025; 93005; 93010; 96361; 96374; 99285-25; A9270; J7120